=== PATIENT | male | born 1960 | race Caucasian/White ===

== ENCOUNTER 2021-04-07 15:56 | Observation (INO) ==
[2021-04-08] MEDS ORDERED: Ondansetron 4 MG/2 ML VIAL IVP PRN (03:14)
[2021-04-08] MEDS ORDERED: Naloxone 0.4 MG/ML INJ IVP PRN (03:14)
[2021-04-08] MEDS ORDERED: 0.9 % Sodium Chloride 1,000 ML IVC SCH (03:15)
[2021-04-08 04:19] LABS: Estimated Average Glucose 114 mg/dl; Hemoglobin A1C 5.6 %
[2021-04-08 04:32] LABS: Alanine Aminotransferase 15 Units/L (7-52); Albumin 3.9 g/dL (3.5-5.7); Albumin/Globulin Ratio 1.4 (1.1-2.2); Alkaline Phosphatase 66 Units/L (34-104); Aspartate Amino Transferase 23 Units/L (13-39); BUN/Creatinine Ratio 10 (6-26); Bilirubin,Total 0.7 mg/dL (0.3-1.0); Blood Urea Nitrogen 8 mg/dL (8-23); Calcium 9.2 mg/dL (8.6-10.3); Carbon Dioxide 28 mEq/L (23-29); Chloride 99 mEq/L (98-107); Chol/HDL Ratio 1.8 (0-4.9); Cholesterol 211 mg/dL (< 200); Globulin 2.8 g/dL (2.4-3.5); Glucose 122 mg/dL (70-105); HDL Cholesterol 118 mg/dL (40-59); LDL Cholesterol,Calculated 83 mg/dL (< 100); Magnesium 1.4 mg/dL (1.6-2.6); Osmolality,Calculated 284 (280-300); Potassium 3.9 mEq/L (3.5-5.1); Sodium 137 mEq/L (136-145); Total Protein 6.7 g/dL (6.4-8.9); Triglycerides 52 mg/dL (< 150); eGFR For African Americans > 60 (> 60); eGFR For Non-African Americans > 60 (> 60)
[2021-04-08 04:34] LABS: Albumin 3.9 g/dL (3.5-5.7); Albumin/Globulin Ratio 1.4 (1.1-2.2); Bilirubin,Direct 0.1 mg/dL (0.0-0.2); Bilirubin,Indirect 0.6 mg/dL (0.0-1.0); Bilirubin,Total 0.7 mg/dL (0.3-1.0); Globulin 2.7 g/dL (2.4-3.5); Total Protein 6.6 g/dL (6.4-8.9)
[2021-04-08 04:46] LABS: Thyroid Stimulating Hormone 0.418 mcIU/mL (0.340-5.600)
[2021-04-08] MEDS ORDERED: Famotidine 20 MG/2 ML VIAL IVP SCH (06:00)
[2021-04-08 06:14] LABS: Activated Partial Thrombo Time 34.5 Seconds (26.0-36.0); INR 1.1; Prothrombin Time 12.3 Seconds (9.4-12.1)
[2021-04-08 06:14] LABS: Amphetamine Screen,Urine Negative ng/mL (Cutoff=1000); Barbiturate Screen,Urine Negative ng/mL (Cutoff=200); Benzodiazepines Screen,Urine Positive ng/mL (Cutoff=300); Cannabinoid Screen,Urine Negative ng/mL (Cutoff = 50); Cocaine Screen,Urine Negative ng/mL (Cutoff= 300); Opiate Screen,Urine Negative ng/mL (Cutoff=300)
[2021-04-08 06:15] LABS: Phencyclidine Screen,Urine Negative ng/mL (Cutoff=25)
[2021-04-08] MEDS ORDERED: *HR* LORazepam 2 MG/ML VIAL IVP ONE (06:46)
[2021-04-08 06:52] VITALS: BP 150/82; PULSE 82; TEMP 98.4; O2SAT 97
[2021-04-08] MEDS ORDERED: Thiamine (B-1) 100 MG TABLET PO SCH (09:00)
[2021-04-08] MEDS ORDERED: Magnesium Oxide 400 MG TABLET PO SCH (09:00)
[2021-04-08] MEDS ORDERED: Folic Acid 1 MG TABLET PO SCH (09:00)
[2021-04-08 11:31] LABS: Hematocrit 38.1 % (37.5-50.1); Hemoglobin 12.5 g/dL (12.9-16.9); Mean Corpuscular HGB Conc 32.8 g/dL (31.6-35.5); Mean Corpuscular Hemoglobin 29.3 pg (28.0-33.3); Mean Corpuscular Volume 89.4 fL (83.0-100.0); Red Blood Count 4.26 M/mcL (4.19-5.50); White Blood Count 4.1 K/mcL (4.3-11.1)
[2021-04-08 11:32] LABS: Lymphocytes # 0.6 K/mcL (0.6-4.6); Lymphocytes % 15.1 %; Mean Platelet Volume 10.8 fL (9.4-12.4); Monocytes # 0.3 K/mcL (0.0-1.3); Monocytes % 7.8 %; Neutrophils # 3.2 K/mcL (1.6-8.9); Platelet Count 301 K/mcL (140-400); Red Cell Distribution Width 17.4 % (11.5-14.5); Segmented Neutrophils % 77.1 %
[2021-04-09 10:19] LABS: Bilirubin,Urine Negative (Negative); Blood,Urine Negative (Negative); Clarity,Urine Clear (Clear); Color,Urine Yellow (Yellow); Glucose,Urine (UA) 50 mg/dL (Normal); Ketones,Urine 60 mg/dL (Negative); Leukocyte Esterase,Urine Negative (Negative); Mucus,Urine Few per lpf (None-Few); Nitrite,Urine Negative (Negative); PH,Urine 6.5 pH Units (5.0-8.0); Protein,Urine 30 mg/dL (Neg-Trace); RBC,Urine 0-3 per hpf (0-3); Specific Gravity,Urine 1.022 (1.010-1.025); Squamous Epithelial Cell,Urine Few per hpf (None-Few); Urobilinogen,Urine Normal (Normal)
== END 2021-04-08 09:31 | disposition home or self-care (01) ==
LOC: 3BNU
PROVIDERS: ADMIT Internal Medicine; ATTEND Internal Medicine

== ENCOUNTER 2021-06-13 01:04 | Inpatient (IN) ==
[2021-06-13] MEDS ORDERED: Naloxone 0.4 MG/ML INJ IVP PRN (01:23)
[2021-06-13] MEDS ORDERED: *HR* LORazepam 2 MG/ML VIAL IVP PRN (01:27)
[2021-06-13] MEDS: *HR* LORazepam 2 MG/ML VIAL IVP PRN ×3 (02:00→16:31)
[2021-06-13] MEDS: Melatonin 3 MG TABLET PO PRN ×2 (02:01→23:39)
[2021-06-13] MEDS ORDERED: *HR* OxyCODONE Immed Rel 5 MG TABLET PO PRN (02:06)
[2021-06-13 02:13] LABS: Basophils % 0.2 %; Eosinophils % 0.2 %; Hematocrit 32.3 % (37.5-50.1); Hemoglobin 10.9 g/dL (12.9-16.9); Immature Granulocytes % 0.6 % (0-4); Lymphocytes # 1.3 K/mcL (0.6-4.6); Lymphocytes % 14.2 %; Mean Corpuscular HGB Conc 33.7 g/dL (31.6-35.5); Mean Corpuscular Hemoglobin 29.7 pg (28.0-33.3); Mean Platelet Volume 9.7 fL (9.4-12.4); Monocytes # 0.5 K/mcL (0.0-1.3); Neutrophils # 7.1 K/mcL (1.6-8.9); Platelet Count 244 K/mcL (140-400); Red Blood Count 3.67 M/mcL (4.19-5.50); Red Cell Distribution Width 18.3 % (11.5-14.5); Segmented Neutrophils % 79.8 %; White Blood Count 8.9 K/mcL (4.3-11.1)
[2021-06-13 02:24] LABS: Prothrombin Time 11.2 Seconds (9.4-12.1)
[2021-06-13 02:37] LABS: BUN/Creatinine Ratio 11 (6-26); Blood Urea Nitrogen 7 mg/dL (8-23); Calcium 8.2 mg/dL (8.6-10.3); Carbon Dioxide 26 mEq/L (23-29); Chloride 97 mEq/L (98-107); Glucose 119 mg/dL (70-105); Osmolality,Calculated 283 (280-300); Potassium 3.1 mEq/L (3.5-5.1); Sodium 137 mEq/L (136-145); eGFR For African Americans > 60 (> 60); eGFR For Non-African Americans > 60 (> 60)
[2021-06-13 02:48] LABS: Troponin I 0.04 ng/mL (< 0.04)
[2021-06-13] MEDS ORDERED: Ondansetron 4 MG/2 ML VIAL IVP PRN (03:01)
[2021-06-13] MEDS: Pantoprazole 40 MG VIAL IVP SCH ×2 (04:48→10:12)
[2021-06-13] MEDS ORDERED: Piperacillin/Tazobactam 3.375 GM in 0.9 % Sodium Chloride Mini Bag 100 ML IVPB SCH (06:00)
[2021-06-13] MEDS: Gabapentin 400 MG CAPSULE PO SCH ×3 (07:37→20:36)
[2021-06-13] MEDS: amLODIPine 5 MG TABLET PO SCH (07:38)
[2021-06-13] MEDS: Nicotine 21 MG PATCH.TD24 TD SCH (07:38)
[2021-06-13] MEDS: Renal Vitamin 1 CAP CAPSULE PO SCH (07:38)
[2021-06-13] MEDS: Amoxicillin/Clavulanate 500 MG TABLET PO SCH ×2 (07:59→15:54)
[2021-06-13] MEDS ORDERED: NON-FORMULARY MEDICATION 1 EACH EACH (Tadalafil [Cialis] 5 MG Tablet) PO SCH (09:00)
[2021-06-13] MEDS ORDERED: cloNIDine HCL 0.1 MG TABLET PO SCH (09:00)
[2021-06-13] MEDS ORDERED: 0.9 % Sodium Chloride 1,000 ML IVC ONE (10:03)
[2021-06-13] MEDS: *HR* Labetalol 20 MG/4 ML SYRINGE IVP PRN ×2 (11:00→21:34)
[2021-06-13] MEDS: *HR* Enoxaparin 40 MG/0.4 ML SYRINGE SQ SCH (11:05)
[2021-06-13] MEDS: Thiamine (B-1) 100 MG in 0.9 % Sodium Chloride 50 ML IVPB SCH (11:14)
[2021-06-13] MEDS: 0.9 % Sodium Chloride 1,000 ML IVC SCH ×2 (11:31→19:21)
[2021-06-13] MEDS: cloNIDine HCL 0.1 MG TABLET PO SCH (20:36)
[2021-06-13] MEDS: Naltrexone HCl 50 MG TABLET PO SCH (20:36)
[2021-06-13] MEDS: Acetaminophen 325 MG TABLET PO PRN (21:25)
[2021-06-14 00:47] LABS: Basophils % 0.2 %; Eosinophils # 0.2 K/mcL (0.0-0.6); Eosinophils % 3.5 %; Hematocrit 28.5 % (37.5-50.1); Immature Granulocytes % 0.3 % (0-4); Lymphocytes # 1.1 K/mcL (0.6-4.6); Lymphocytes % 16.8 %; Mean Corpuscular HGB Conc 32.3 g/dL (31.6-35.5); Mean Corpuscular Hemoglobin 29.5 pg (28.0-33.3); Mean Corpuscular Volume 91.3 fL (83.0-100.0); Mean Platelet Volume 10.8 fL (9.4-12.4); Monocytes # 0.2 K/mcL (0.0-1.3); Monocytes % 3.4 %; Platelet Count 180 K/mcL (140-400); Red Blood Count 3.12 M/mcL (4.19-5.50); Red Cell Distribution Width 18.7 % (11.5-14.5); Segmented Neutrophils % 75.8 %; White Blood Count 6.6 K/mcL (4.3-11.1)
[2021-06-14 00:48] LABS: Hemoglobin 9.2 g/dL (12.9-16.9)
[2021-06-14 01:03] LABS: BUN/Creatinine Ratio 14 (6-26); Blood Urea Nitrogen 9 mg/dL (8-23); Calcium 8.1 mg/dL (8.6-10.3); Carbon Dioxide 25 mEq/L (23-29); Chloride 104 mEq/L (98-107); Glucose 148 mg/dL (70-105); Magnesium 1.7 mg/dL (1.6-2.6); Osmolality,Calculated 285 (280-300); Phosphorous 2.8 mg/dL (2.7-4.5); Potassium 3.2 mEq/L (3.5-5.1); Sodium 137 mEq/L (136-145); eGFR For African Americans > 60 (> 60); eGFR For Non-African Americans > 60 (> 60)
[2021-06-14] MEDS: *HR* LORazepam 2 MG/ML VIAL IVP PRN ×3 (01:15→22:14)
[2021-06-14] MEDS: *HR* Enoxaparin 40 MG/0.4 ML SYRINGE SQ SCH (04:48)
[2021-06-14] MEDS ORDERED: 0.9 % Sodium Chloride 1,000 ML IVC SCH (07:45)
[2021-06-14] MEDS: Renal Vitamin 1 CAP CAPSULE PO SCH (07:56)
[2021-06-14] MEDS: Nicotine 21 MG PATCH.TD24 TD SCH (07:56)
[2021-06-14] MEDS: Gabapentin 400 MG CAPSULE PO SCH ×3 (07:56→20:18)
[2021-06-14] MEDS: amLODIPine 5 MG TABLET PO SCH (07:57)
[2021-06-14] MEDS: Amoxicillin/Clavulanate 500 MG TABLET PO SCH ×2 (07:57→15:48)
[2021-06-14] MEDS: cloNIDine HCL 0.1 MG TABLET PO SCH ×2 (07:57→20:16)
[2021-06-14] MEDS: Thiamine (B-1) 100 MG in 0.9 % Sodium Chloride 50 ML IVPB SCH (08:02)
[2021-06-14] MEDS: *HR* OxyCODONE/APAP 5/325 TABLET PO PRN ×2 (09:49→19:31)
[2021-06-14] MEDS: Acetaminophen 325 MG TABLET PO PRN (12:28)
[2021-06-14] MEDS: *HR* Labetalol 20 MG/4 ML SYRINGE IVP PRN (14:28)
[2021-06-14] MEDS: carvediloL 6.25 MG TABLET PO SCH ×2 (14:29→20:17)
[2021-06-14] MEDS: 0.9 % Sodium Chloride 1,000 ML IVC SCH ×2 (15:49→23:52)
[2021-06-14] MEDS: Melatonin 3 MG TABLET PO PRN (20:18)
[2021-06-14] MEDS: Naltrexone HCl 50 MG TABLET PO SCH (20:18)
[2021-06-15] MEDS: *HR* OxyCODONE/APAP 5/325 TABLET PO PRN ×3 (01:35→16:28)
[2021-06-15 01:38] LABS: Basophils % 0.2 %; Eosinophils # 0.2 K/mcL (0.0-0.6); Hematocrit 28.3 % (37.5-50.1); Hemoglobin 9.1 g/dL (12.9-16.9); Immature Granulocytes % 0.6 % (0-4); Lymphocytes % 19.1 %; Mean Corpuscular HGB Conc 32.2 g/dL (31.6-35.5); Mean Corpuscular Hemoglobin 29.6 pg (28.0-33.3); Mean Corpuscular Volume 92.2 fL (83.0-100.0); Mean Platelet Volume 10.9 fL (9.4-12.4); Monocytes # 0.2 K/mcL (0.0-1.3); Monocytes % 3.4 %; Neutrophils # 3.8 K/mcL (1.6-8.9); Platelet Count 178 K/mcL (140-400); Red Blood Count 3.07 M/mcL (4.19-5.50); Red Cell Distribution Width 18.4 % (11.5-14.5); Segmented Neutrophils % 72.7 %; White Blood Count 5.2 K/mcL (4.3-11.1)
[2021-06-15 02:04] LABS: BUN/Creatinine Ratio 10 (6-26); Blood Urea Nitrogen 6 mg/dL (8-23); Calcium 8.3 mg/dL (8.6-10.3); Carbon Dioxide 25 mEq/L (23-29); Chloride 102 mEq/L (98-107); Glucose 171 mg/dL (70-105); Magnesium 1.3 mg/dL (1.6-2.6); Osmolality,Calculated 284 (280-300); Phosphorous 3.2 mg/dL (2.7-4.5); Potassium 3.7 mEq/L (3.5-5.1); Sodium 136 mEq/L (136-145); eGFR For African Americans > 60 (> 60); eGFR For Non-African Americans > 60 (> 60)
[2021-06-15] MEDS: *HR* LORazepam 2 MG/ML VIAL IVP PRN ×5 (03:21→21:57)
[2021-06-15] MEDS: *HR* Enoxaparin 40 MG/0.4 ML SYRINGE SQ SCH (05:26)
[2021-06-15] MEDS: amLODIPine 5 MG TABLET PO SCH (08:32)
[2021-06-15] MEDS: cloNIDine HCL 0.1 MG TABLET PO SCH ×2 (08:33→21:53)
[2021-06-15] MEDS: carvediloL 6.25 MG TABLET PO SCH ×2 (08:33→21:49)
[2021-06-15] MEDS: Gabapentin 400 MG CAPSULE PO SCH ×3 (08:33→21:53)
[2021-06-15] MEDS: Renal Vitamin 1 CAP CAPSULE PO SCH (08:33)
[2021-06-15] MEDS: Thiamine (B-1) 100 MG TABLET PO SCH (08:33)
[2021-06-15] MEDS: Amoxicillin/Clavulanate 500 MG TABLET PO SCH ×2 (08:33→16:28)
[2021-06-15] MEDS: Nicotine 21 MG PATCH.TD24 TD SCH (08:34)
[2021-06-15 17:50] LABS: Adenovirus Not Detected (Not Detect); Bordetella Pertussis Not Detected (Not Detect); Chlamydophila pneumoniae Not Detected (Not Detect); Coronavirus 229E Not Detected (Not Detect); Coronavirus HKU1 Not Detected (Not Detect); Coronavirus NL63 Not Detected (Not Detect); Coronavirus OC43 Not Detected (Not Detect); Human Metapneumovirus Not Detected (Not Detect); Human Rhinovirus/Enterovirus Not Detected (Not Detect); Influenza A Subtype 2009 H1 Not Detected (Not Detect); Influenza B Not Detected (Not Detect); Mycoplasma pneumoniae Not Detected (Not Detect); Parainfluenza Virus 1 Not Detected (Not Detect); Parainfluenza Virus 2 Not Detected (Not Detect); Parainfluenza Virus 3 Not Detected (Not Detect); Parainfluenza Virus 4 Not Detected (Not Detect); Respiratory Syncytial Virus Not Detected (Not Detect); SARS-CoV-2 Not Detected (Not Detect)
[2021-06-15] MEDS: Melatonin 3 MG TABLET PO PRN (21:50)
[2021-06-15] MEDS: Naltrexone HCl 50 MG TABLET PO SCH (21:50)
[2021-06-16] MEDS: *HR* OxyCODONE/APAP 5/325 TABLET PO PRN ×3 (00:04→17:40)
[2021-06-16 05:19] LABS: Basophils % 0.2 %; Eosinophils # 0.2 K/mcL (0.0-0.6); Eosinophils % 3.1 %; Hemoglobin 10.4 g/dL (12.9-16.9); Immature Granulocytes % 0.5 % (0-4); Lymphocytes # 1.6 K/mcL (0.6-4.6); Lymphocytes % 27.7 %; Mean Corpuscular HGB Conc 33.5 g/dL (31.6-35.5); Mean Corpuscular Hemoglobin 30.7 pg (28.0-33.3); Mean Corpuscular Volume 91.4 fL (83.0-100.0); Mean Platelet Volume 10.6 fL (9.4-12.4); Monocytes # 0.5 K/mcL (0.0-1.3); Monocytes % 8.3 %; Neutrophils # 3.6 K/mcL (1.6-8.9); Platelet Count 220 K/mcL (140-400); Red Blood Count 3.39 M/mcL (4.19-5.50); Red Cell Distribution Width 18.5 % (11.5-14.5); Segmented Neutrophils % 60.2 %; White Blood Count 5.9 K/mcL (4.3-11.1)
[2021-06-16 05:37] LABS: BUN/Creatinine Ratio 12 (6-26); Blood Urea Nitrogen 8 mg/dL (8-23); Calcium 9.3 mg/dL (8.6-10.3); Carbon Dioxide 28 mEq/L (23-29); Chloride 100 mEq/L (98-107); Glucose 96 mg/dL (70-105); Magnesium 1.7 mg/dL (1.6-2.6); Osmolality,Calculated 280 (280-300); Phosphorous 4.6 mg/dL (2.7-4.5); Potassium 4.2 mEq/L (3.5-5.1); Sodium 136 mEq/L (136-145); eGFR For African Americans > 60 (> 60); eGFR For Non-African Americans > 60 (> 60)
[2021-06-16] MEDS: *HR* Enoxaparin 40 MG/0.4 ML SYRINGE SQ SCH (07:17)
[2021-06-16] MEDS: Amoxicillin/Clavulanate 500 MG TABLET PO SCH ×2 (08:54→17:40)
[2021-06-16] MEDS: *HR* LORazepam 2 MG/ML VIAL IVP PRN ×4 (08:54→21:49)
[2021-06-16] MEDS: cloNIDine HCL 0.1 MG TABLET PO SCH ×2 (08:54→21:51)
[2021-06-16] MEDS: carvediloL 6.25 MG TABLET PO SCH ×2 (08:54→21:50)
[2021-06-16] MEDS: amLODIPine 5 MG TABLET PO SCH (08:54)
[2021-06-16] MEDS: Gabapentin 400 MG CAPSULE PO SCH ×3 (08:55→21:51)
[2021-06-16] MEDS: Thiamine (B-1) 100 MG TABLET PO SCH (08:55)
[2021-06-16] MEDS: Nicotine 21 MG PATCH.TD24 TD SCH (08:55)
[2021-06-16] MEDS: Renal Vitamin 1 CAP CAPSULE PO SCH (08:55)
[2021-06-16] MEDS: Naltrexone HCl 50 MG TABLET PO SCH (21:50)
[2021-06-17] MEDS: *HR* OxyCODONE/APAP 5/325 TABLET PO PRN ×4 (00:39→19:16)
[2021-06-17] MEDS: Melatonin 3 MG TABLET PO PRN ×2 (00:40→21:10)
[2021-06-17] MEDS: *HR* LORazepam 2 MG/ML VIAL IVP PRN ×6 (02:15→23:17)
[2021-06-17 05:08] LABS: Basophils % 0.2 %; Eosinophils # 0.2 K/mcL (0.0-0.6); Eosinophils % 3.7 %; Immature Granulocytes % 0.5 % (0-4); Lymphocytes # 1.6 K/mcL (0.6-4.6); Lymphocytes % 27.1 %; Mean Corpuscular HGB Conc 33.3 g/dL (31.6-35.5); Mean Corpuscular Hemoglobin 30.9 pg (28.0-33.3); Mean Corpuscular Volume 92.6 fL (83.0-100.0); Monocytes # 0.7 K/mcL (0.0-1.3); Monocytes % 11.3 %; Neutrophils # 3.4 K/mcL (1.6-8.9); Platelet Count 242 K/mcL (140-400); Red Blood Count 3.24 M/mcL (4.19-5.50); Red Cell Distribution Width 18.9 % (11.5-14.5); Segmented Neutrophils % 57.2 %
[2021-06-17 05:33] LABS: BUN/Creatinine Ratio 13 (6-26); Blood Urea Nitrogen 10 mg/dL (8-23); Calcium 8.9 mg/dL (8.6-10.3); Carbon Dioxide 28 mEq/L (23-29); Chloride 102 mEq/L (98-107); Glucose 130 mg/dL (70-105); Magnesium 1.5 mg/dL (1.6-2.6); Osmolality,Calculated 287 (280-300); Phosphorous 4.9 mg/dL (2.7-4.5); Potassium 3.2 mEq/L (3.5-5.1); Sodium 138 mEq/L (136-145); eGFR For African Americans > 60 (> 60); eGFR For Non-African Americans > 60 (> 60)
[2021-06-17] MEDS: *HR* Enoxaparin 40 MG/0.4 ML SYRINGE SQ SCH (06:47)
[2021-06-17] MEDS: amLODIPine 5 MG TABLET PO SCH (07:23)
[2021-06-17] MEDS: Amoxicillin/Clavulanate 500 MG TABLET PO SCH ×2 (07:23→15:10)
[2021-06-17] MEDS: Gabapentin 400 MG CAPSULE PO SCH ×3 (07:23→21:09)
[2021-06-17] MEDS: Thiamine (B-1) 100 MG TABLET PO SCH (07:23)
[2021-06-17] MEDS: Renal Vitamin 1 CAP CAPSULE PO SCH (07:23)
[2021-06-17] MEDS: carvediloL 6.25 MG TABLET PO SCH ×2 (07:23→21:10)
[2021-06-17] MEDS: cloNIDine HCL 0.1 MG TABLET PO SCH ×2 (07:24→21:10)
[2021-06-17] MEDS: Nicotine 21 MG PATCH.TD24 TD SCH (07:24)
[2021-06-18] MEDS: *HR* OxyCODONE/APAP 5/325 TABLET PO PRN ×2 (01:18→09:10)
[2021-06-18 03:08] LABS: Basophils % 0.2 %; Eosinophils # 0.2 K/mcL (0.0-0.6); Eosinophils % 2.4 %; Hematocrit 29.3 % (37.5-50.1); Hemoglobin 9.5 g/dL (12.9-16.9); Immature Granulocytes % 0.8 % (0-4); Lymphocytes # 1.5 K/mcL (0.6-4.6); Lymphocytes % 24.4 %; Mean Corpuscular HGB Conc 32.4 g/dL (31.6-35.5); Mean Corpuscular Hemoglobin 30.5 pg (28.0-33.3); Mean Corpuscular Volume 94.2 fL (83.0-100.0); Mean Platelet Volume 9.8 fL (9.4-12.4); Monocytes % 15.3 %; Neutrophils # 3.6 K/mcL (1.6-8.9); Platelet Count 259 K/mcL (140-400); Red Blood Count 3.11 M/mcL (4.19-5.50); Red Cell Distribution Width 19.4 % (11.5-14.5); Segmented Neutrophils % 56.9 %; White Blood Count 6.3 K/mcL (4.3-11.1)
[2021-06-18 03:27] LABS: BUN/Creatinine Ratio 19 (6-26); Blood Urea Nitrogen 14 mg/dL (8-23); Calcium 8.8 mg/dL (8.6-10.3); Carbon Dioxide 24 mEq/L (23-29); Chloride 105 mEq/L (98-107); Glucose 82 mg/dL (70-105); Magnesium 1.8 mg/dL (1.6-2.6); Osmolality,Calculated 286 (280-300); Phosphorous 3.8 mg/dL (2.7-4.5); Potassium 4.2 mEq/L (3.5-5.1); Sodium 138 mEq/L (136-145); eGFR For African Americans > 60 (> 60); eGFR For Non-African Americans > 60 (> 60)
[2021-06-18] MEDS: *HR* Enoxaparin 40 MG/0.4 ML SYRINGE SQ SCH (05:42)
[2021-06-18] MEDS: Thiamine (B-1) 100 MG TABLET PO SCH (08:56)
[2021-06-18] MEDS: carvediloL 6.25 MG TABLET PO SCH (08:56)
[2021-06-18] MEDS: Amoxicillin/Clavulanate 500 MG TABLET PO SCH (08:56)
[2021-06-18] MEDS: Nicotine 21 MG PATCH.TD24 TD SCH (08:58)
[2021-06-18] MEDS: Gabapentin 400 MG CAPSULE PO SCH (08:58)
[2021-06-18] MEDS: cloNIDine HCL 0.1 MG TABLET PO SCH (08:58)
[2021-06-18] MEDS: Renal Vitamin 1 CAP CAPSULE PO SCH (08:58)
[2021-06-18] MEDS: amLODIPine 5 MG TABLET PO SCH (08:58)
[2021-06-18] MEDS: *HR* LORazepam 2 MG/ML VIAL IVP PRN (09:09)
[2021-06-18 11:26] LABS: Adenovirus Not Detected (Not Detect); Bordetella Pertussis Not Detected (Not Detect); Chlamydophila pneumoniae Not Detected (Not Detect); Coronavirus 229E Not Detected (Not Detect); Coronavirus HKU1 Not Detected (Not Detect); Coronavirus NL63 Not Detected (Not Detect); Coronavirus OC43 Not Detected (Not Detect); Human Metapneumovirus Not Detected (Not Detect); Human Rhinovirus/Enterovirus Not Detected (Not Detect); Influenza A Subtype 2009 H1 Not Detected (Not Detect); Influenza B Not Detected (Not Detect); Mycoplasma pneumoniae Not Detected (Not Detect); Parainfluenza Virus 1 Not Detected (Not Detect); Parainfluenza Virus 2 Not Detected (Not Detect); Parainfluenza Virus 3 Not Detected (Not Detect); Parainfluenza Virus 4 Not Detected (Not Detect); Respiratory Syncytial Virus Not Detected (Not Detect)
[2021-06-18 11:31] LABS: SARS-CoV-2 DETECTED (Not Detect)
[2021-06-18 12:02] VITALS: BP 178/98; PULSE 103; TEMP 98.3; O2SAT 98
[2021-06-18] MEDS: Acetaminophen 325 MG TABLET PO PRN (13:36)
== END 2021-06-18 15:34 | disposition home or self-care (01) | DRG 871 ==
LOC: 2NENU → OBSVTOIN 01:04
PROVIDERS: ADMIT Internal Medicine; ATTEND Internal Medicine

== ENCOUNTER 2021-08-15 20:36 | Inpatient (IN) ==
[2021-08-16] MEDS ORDERED: Ondansetron ODT 4 MG TAB.RAPDIS SL PRN (04:21)
[2021-08-16] MEDS ORDERED: Acetaminophen 325 MG TABLET PO PRN (04:21)
[2021-08-16] MEDS ORDERED: Naloxone 0.4 MG/ML INJ IVP PRN (04:21)
[2021-08-16] MEDS ORDERED: *HR* LORazepam 2 MG/ML VIAL IVP PRN ×2 (04:34→04:38)
[2021-08-16] MEDS ORDERED: Thiamine (B-1) 500 MG in 0.9 % Sodium Chloride 100 ML IVPB ONE (05:00)
[2021-08-16] MEDS: *HR* LORazepam 2 MG/ML VIAL IVP PRN ×3 (06:17→14:02)
[2021-08-16 06:26] LABS: Folate 12.7 ng/mL (3.0-16.0)
[2021-08-16] MEDS: Ringers Solution, Lactated 1,000 ML IVC SCH ×4 (06:40→20:25)
[2021-08-16 09:26] LABS: Basophils % 0.3 %; Eosinophils % 0.4 %; Hematocrit 30.7 % (37.5-50.1); Hemoglobin 10.2 g/dL (12.9-16.9); Immature Granulocytes % 0.8 % (0-4); Lymphocytes # 0.8 K/mcL (0.6-4.6); Lymphocytes % 10.8 %; Mean Corpuscular HGB Conc 33.2 g/dL (31.6-35.5); Mean Corpuscular Hemoglobin 28.7 pg (28.0-33.3); Mean Corpuscular Volume 86.2 fL (83.0-100.0); Mean Platelet Volume 9.8 fL (9.4-12.4); Monocytes # 0.6 K/mcL (0.0-1.3); Monocytes % 7.4 %; Neutrophils # 6.3 K/mcL (1.6-8.9); Platelet Count 163 K/mcL (140-400); Red Blood Count 3.56 M/mcL (4.19-5.50); Red Cell Distribution Width 16.8 % (11.5-14.5); Segmented Neutrophils % 80.3 %; White Blood Count 7.8 K/mcL (4.3-11.1)
[2021-08-16 09:46] LABS: Alanine Aminotransferase 26 Units/L (7-52); Albumin 3.2 g/dL (3.5-5.7); Albumin/Globulin Ratio 1.5 (1.1-2.2); Alkaline Phosphatase 69 Units/L (34-104); Aspartate Amino Transferase 62 Units/L (13-39); BUN/Creatinine Ratio 9 (6-26); Bilirubin,Total 0.7 mg/dL (0.3-1.0); Blood Urea Nitrogen 6 mg/dL (8-23); Calcium 7.7 mg/dL (8.6-10.3); Carbon Dioxide 26 mEq/L (23-29); Chloride 100 mEq/L (98-107); Globulin 2.1 g/dL (2.4-3.5); Glucose 83 mg/dL (70-105); Osmolality,Calculated 273 (280-300); Potassium 2.9 mEq/L (3.5-5.1); Sodium 133 mEq/L (136-145); Total Protein 5.3 g/dL (6.4-8.9); eGFR For African Americans > 60 (> 60); eGFR For Non-African Americans > 60 (> 60)
[2021-08-16] MEDS: Ondansetron 4 MG/2 ML VIAL IVP PRN ×2 (10:05→20:23)
[2021-08-16] MEDS: Dexmedetomidine HCl 400 MCG/100 ML MLS IVC SCH (15:17)
[2021-08-16] MEDS ORDERED: traZODone 50 MG TABLET PO PRN (16:51)
[2021-08-16] MEDS ORDERED: QUEtiapine Fumarate 25 MG TABLET PO PRN (16:55)
[2021-08-16] MEDS ORDERED: amLODIPine 5 MG TABLET PO SCH (17:00)
[2021-08-16] MEDS ORDERED: carvediloL 6.25 MG TABLET PO SCH (17:00)
[2021-08-16] MEDS ORDERED: *HR* LORazepam 2 MG/ML VIAL IVP ONE (17:27)
[2021-08-16] MEDS ORDERED: *HR* Midazolam HCl 5 MG/5 ML VIAL IVP ONE (17:27)
[2021-08-16] MEDS ORDERED: *HR* Etomidate 20 MG/10 ML AMPUL IVP ONE (17:27)
[2021-08-16] MEDS ORDERED: *HR* Propofol 200 MG/20 ML VIAL IVP ONE ×2 (17:27→21:42)
[2021-08-16] MEDS ORDERED: *HR* Midazolam HCl 2 MG/2 ML VIAL IVP ONE (17:27)
[2021-08-16] MEDS: *HR* Heparin 5,000 UNIT/ML VIAL SQ SCH (17:45)
[2021-08-16] MEDS ORDERED: Thiamine (B-1) 100 MG, Folic Acid 1 MG, MVI, adult with vitamin K 10 ML in 0.9 % Sodi... IVPB SCH (18:00)
[2021-08-16] MEDS: Melatonin 3 MG TABLET PO PRN (20:24)
[2021-08-16] MEDS: Gabapentin 300 MG CAPSULE PO SCH (20:24)
[2021-08-16] MEDS ORDERED: cloNIDine HCL 0.1 MG TABLET PO SCH (21:00)
[2021-08-16] MEDS ORDERED: *HR* EPINEPHrine 1 MG/10 ML SYRINGE IVP ONE (21:43)
[2021-08-16] MEDS ORDERED: *HR* Midazolam HCl 2 MG/2 ML VIAL ONE (21:56)
[2021-08-16 21:59] LABS: ABG Base Excess 2 mEq/L (-2 to 3); ABG HCO3 28 mEq/L (21-27); ABG Oxygen Saturation 100 % (95-98); ABG PCO2 48 mmHg (35-45); ABG PH 7.37 pH Units (7.32-7.45); ABG PO2 181 mmHg (85-104); ABG TCO2 29 mEq/L (20-26)
[2021-08-16] MEDS: Midazolam HCl 50 MG/100 ML IV.SOLN IVC SCH (22:17)
[2021-08-16] MEDS ORDERED: Artificial Tears SOLN 15 ML BOTTLE BOTH EYES PRN (22:34)
[2021-08-16 22:42] LABS: Prothrombin Time 11.4 Seconds (9.4-12.1)
[2021-08-16 23:17] LABS: Alanine Aminotransferase 44 Units/L (7-52); Albumin 3.4 g/dL (3.5-5.7); Albumin/Globulin Ratio 1.3 (1.1-2.2); Alkaline Phosphatase 79 Units/L (34-104); Aspartate Amino Transferase 123 Units/L (13-39); BUN/Creatinine Ratio 5 (6-26); Bilirubin,Total 1.1 mg/dL (0.3-1.0); Blood Urea Nitrogen 4 mg/dL (8-23); Calcium 9.1 mg/dL (8.6-10.3); Carbon Dioxide 24 mEq/L (23-29); Chloride 96 mEq/L (98-107); Creatine Kinase 940 Units/L (30-223); Globulin 2.6 g/dL (2.4-3.5); Glucose 148 mg/dL (70-105); Magnesium 1.6 mg/dL (1.6-2.6); Osmolality,Calculated 280 (280-300); Phosphorous 4.3 mg/dL (2.7-4.5); Potassium 3.3 mEq/L (3.5-5.1); Prolactin 67.48 ng/mL (3.00-14.70); Sodium 135 mEq/L (136-145); Troponin I 0.06 ng/mL (< 0.04); eGFR For African Americans > 60 (> 60); eGFR For Non-African Americans > 60 (> 60)
[2021-08-17] MEDS: Ringers Solution, Lactated 1,000 ML IVC SCH ×2 (01:13→06:38)
[2021-08-17] MEDS: Artificial Tears SOLN 15 ML BOTTLE BOTH EYES SCH ×7 (01:18→23:30)
[2021-08-17 02:33] LABS: Basophils % 0.3 %; Eosinophils % 0.3 %; Hematocrit 29.3 % (37.5-50.1); Hemoglobin 9.9 g/dL (12.9-16.9); Immature Granulocytes % 0.6 % (0-4); Lymphocytes # 1.2 K/mcL (0.6-4.6); Lymphocytes % 18.1 %; Mean Corpuscular HGB Conc 33.8 g/dL (31.6-35.5); Mean Corpuscular Hemoglobin 29.3 pg (28.0-33.3); Mean Corpuscular Volume 86.7 fL (83.0-100.0); Mean Platelet Volume 10.4 fL (9.4-12.4); Monocytes # 0.4 K/mcL (0.0-1.3); Monocytes % 5.7 %; Platelet Count 146 K/mcL (140-400); Red Blood Count 3.38 M/mcL (4.19-5.50); Red Cell Distribution Width 16.9 % (11.5-14.5); White Blood Count 6.6 K/mcL (4.3-11.1)
[2021-08-17] MEDS: Midazolam HCl 50 MG/100 ML IV.SOLN IVC SCH ×2 (03:50→11:35)
[2021-08-17 03:59] LABS: Basophils % 0.2 %; Eosinophils # 0.1 K/mcL (0.0-0.6); Eosinophils % 0.8 %; Hematocrit 29.4 % (37.5-50.1); Hemoglobin 9.8 g/dL (12.9-16.9); Immature Granulocytes % 0.6 % (0-4); Lymphocytes # 1.2 K/mcL (0.6-4.6); Lymphocytes % 18.8 %; Mean Corpuscular HGB Conc 33.3 g/dL (31.6-35.5); Mean Corpuscular Hemoglobin 28.8 pg (28.0-33.3); Mean Corpuscular Volume 86.5 fL (83.0-100.0); Monocytes # 0.3 K/mcL (0.0-1.3); Neutrophils # 4.8 K/mcL (1.6-8.9); Platelet Count 143 K/mcL (140-400); Red Cell Distribution Width 16.8 % (11.5-14.5); Segmented Neutrophils % 74.6 %; White Blood Count 6.4 K/mcL (4.3-11.1)
[2021-08-17 04:20] LABS: Alanine Aminotransferase 41 Units/L (7-52); Albumin 2.8 g/dL (3.5-5.7); Albumin/Globulin Ratio 1.3 (1.1-2.2); Alkaline Phosphatase 69 Units/L (34-104); Aspartate Amino Transferase 110 Units/L (13-39); BUN/Creatinine Ratio 5 (6-26); Bilirubin,Total 0.7 mg/dL (0.3-1.0); Blood Urea Nitrogen 3 mg/dL (8-23); Calcium 8.5 mg/dL (8.6-10.3); Carbon Dioxide 30 mEq/L (23-29); Chloride 102 mEq/L (98-107); Globulin 2.1 g/dL (2.4-3.5); Glucose 101 mg/dL (70-105); Magnesium 2.3 mg/dL (1.6-2.6); Osmolality,Calculated 283 (280-300); Potassium 3.2 mEq/L (3.5-5.1); Sodium 138 mEq/L (136-145); Total Protein 4.9 g/dL (6.4-8.9); eGFR For African Americans > 60 (> 60); eGFR For Non-African Americans > 60 (> 60)
[2021-08-17 04:31] LABS: ABG Base Excess 6 mEq/L (-2 to 3); ABG HCO3 30 mEq/L (21-27); ABG Oxygen Saturation 100 % (95-98); ABG PCO2 44 mmHg (35-45); ABG PH 7.45 pH Units (7.32-7.45); ABG PO2 421 mmHg (85-104); ABG TCO2 32 mEq/L (20-26); Blood Gas Modality ASSIST CONTROL; Blood Gas VT 500 cc
[2021-08-17] MEDS ORDERED: Dextrose Gel 15 GM/37.5 ML TUBE PO PRN ×2 (04:46)
[2021-08-17] MEDS ORDERED: D5% in Water 1,000 ML IVC PRN (04:46)
[2021-08-17] MEDS ORDERED: *HR* Dextrose 50 % in Water (Syg) 50 ML SYRINGE IVP PRN (04:46)
[2021-08-17] MEDS ORDERED: Furosemide 20 MG/2 ML VIAL IVP ONE (05:00)
[2021-08-17] MEDS ORDERED: Vancomycin 1,250 MG/262.5 ML IV.SOLN IVPB SCH (06:00)
[2021-08-17] MEDS: carvediloL 6.25 MG TABLET PO SCH ×2 (06:26→15:38)
[2021-08-17] MEDS: amLODIPine 5 MG TABLET PO SCH (06:40)
[2021-08-17] MEDS: *HR* Heparin 5,000 UNIT/ML VIAL SQ SCH ×2 (06:40→18:25)
[2021-08-17 07:14] LABS: Adenovirus Not Detected (Not Detect); Bordetella Pertussis Not Detected (Not Detect); Chlamydophila pneumoniae Not Detected (Not Detect); Coronavirus 229E Not Detected (Not Detect); Coronavirus HKU1 Not Detected (Not Detect); Coronavirus NL63 Not Detected (Not Detect); Coronavirus OC43 Not Detected (Not Detect); Human Metapneumovirus Not Detected (Not Detect); Human Rhinovirus/Enterovirus Not Detected (Not Detect); Influenza A Subtype 2009 H1 Not Detected (Not Detect); Influenza B Not Detected (Not Detect); Mycoplasma pneumoniae Not Detected (Not Detect); Parainfluenza Virus 1 Not Detected (Not Detect); Parainfluenza Virus 2 Not Detected (Not Detect); Parainfluenza Virus 3 Not Detected (Not Detect); Parainfluenza Virus 4 Not Detected (Not Detect); Respiratory Syncytial Virus Not Detected (Not Detect); SARS-CoV-2 Not Detected (Not Detect)
[2021-08-17] MEDS: Ipratropium/Albuterol Neb 3 ML IH SCH ×3 (08:08→20:59)
[2021-08-17] MEDS ORDERED: Ipratropium/Albuterol Neb 3 ML ONE (08:15)
[2021-08-17] MEDS: Piperacillin/Tazobactam 3.375 GM in 0.9 % Sodium Chloride Mini Bag 100 ML IVPB SCH ×3 (08:50→23:34)
[2021-08-17] MEDS ORDERED: NON-FORMULARY MEDICATION 1 EACH EACH (Duloxetine Hcl [Cymbalta] 60 MG Capsule.Dr) PO SCH (09:00)
[2021-08-17] MEDS: Chlorhexidine Rinse 15 ML MOUTHWASH MM SCH ×2 (09:17→19:57)
[2021-08-17] MEDS: Pantoprazole 40 MG VIAL IVP SCH (09:18)
[2021-08-17] MEDS: Aspirin Enteric Coated 81 MG Tablet PO SCH (09:18)
[2021-08-17] MEDS: Gabapentin 300 MG CAPSULE PO SCH ×3 (09:19→19:57)
[2021-08-17] MEDS ORDERED: Perflutren Lipid Microsphere 1.3 ML in 0.9 % Sodium Chloride 8.7 ML IVP PRN (11:12)
[2021-08-17 11:29] LABS: BUN/Creatinine Ratio 6 (6-26); Blood Urea Nitrogen 4 mg/dL (8-23); Calcium 8.2 mg/dL (8.6-10.3); Carbon Dioxide 28 mEq/L (23-29); Chloride 101 mEq/L (98-107); Ethanol < 10 mg/dL (Less than 10); Glucose 94 mg/dL (70-105); Osmolality,Calculated 279 (280-300); Potassium 3.2 mEq/L (3.5-5.1); Sodium 136 mEq/L (136-145); eGFR For African Americans > 60 (> 60); eGFR For Non-African Americans > 60 (> 60)
[2021-08-17] MEDS: Baclofen 10 MG TABLET PO SCH ×2 (15:33→19:57)
[2021-08-17] MEDS ORDERED: Acetaminophen IV 500 MG/50 ML BAG IVPB ONE (15:51)
[2021-08-17] MEDS: Potassium Chloride 40 MEQ/200 ML BAG IVPB PRN (16:10)
[2021-08-17 16:32] LABS: BUN/Creatinine Ratio 8 (6-26); Blood Urea Nitrogen 6 mg/dL (8-23); Calcium 8.3 mg/dL (8.6-10.3); Carbon Dioxide 28 mEq/L (23-29); Chloride 102 mEq/L (98-107); Glucose 97 mg/dL (70-105); Magnesium 1.7 mg/dL (1.6-2.6); Osmolality,Calculated 276 (280-300); Potassium 3.3 mEq/L (3.5-5.1); Sodium 134 mEq/L (136-145); eGFR For African Americans > 60 (> 60); eGFR For Non-African Americans > 60 (> 60)
[2021-08-17 19:43] LABS: Basophils % 0.3 %; Eosinophils % 0.2 %; Hematocrit 31.2 % (37.5-50.1); Hemoglobin 9.8 g/dL (12.9-16.9); Immature Granulocytes % 1.4 % (0-4); Lymphocytes # 0.8 K/mcL (0.6-4.6); Lymphocytes % 13.1 %; Mean Corpuscular HGB Conc 31.4 g/dL (31.6-35.5); Mean Corpuscular Hemoglobin 28.1 pg (28.0-33.3); Mean Corpuscular Volume 89.4 fL (83.0-100.0); Mean Platelet Volume 10.7 fL (9.4-12.4); Monocytes # 0.5 K/mcL (0.0-1.3); Monocytes % 7.8 %; Platelet Count 131 K/mcL (140-400); Red Blood Count 3.49 M/mcL (4.19-5.50); Red Cell Distribution Width 17.6 % (11.5-14.5); Segmented Neutrophils % 77.2 %; White Blood Count 6.4 K/mcL (4.3-11.1)
[2021-08-17] MEDS: Dexmedetomidine HCl 400 MCG/100 ML MLS IVC SCH (19:51)
[2021-08-17] MEDS: Vancomycin 1,250 MG/262.5 ML IV.SOLN IVPB SCH (19:52)
[2021-08-17] MEDS: Folic Acid 1 MG in 0.9 % Sodium Chloride 50 ML IVPB SCH (19:58)
[2021-08-17] MEDS: Thiamine (B-1) 100 MG in 0.9 % Sodium Chloride 50 ML IVPB SCH (20:02)
[2021-08-17] MEDS: FentaNYL (PF) 1,000 MCG/100 ML IV.SOLN IVC SCH ×2 (20:12→22:14)
[2021-08-18 00:32] LABS: Magnesium 1.9 mg/dL (1.6-2.6); Potassium 3.6 mEq/L (3.5-5.1)
[2021-08-18] MEDS: Potassium Chloride 40 MEQ/200 ML BAG IVPB PRN (01:08)
[2021-08-18] MEDS: Midazolam HCl 50 MG/100 ML IV.SOLN IVC SCH ×2 (03:05→21:48)
[2021-08-18] MEDS: Artificial Tears SOLN 15 ML BOTTLE BOTH EYES SCH ×6 (03:21→23:43)
[2021-08-18 04:03] LABS: Eosinophils # 0.1 K/mcL (0.0-0.6); Eosinophils % 0.8 %; Hematocrit 31.2 % (37.5-50.1); Immature Granulocytes % 0.6 % (0-4); Lymphocytes # 1.1 K/mcL (0.6-4.6); Lymphocytes % 15.3 %; Mean Corpuscular HGB Conc 32.1 g/dL (31.6-35.5); Mean Corpuscular Volume 90.4 fL (83.0-100.0); Mean Platelet Volume 10.8 fL (9.4-12.4); Monocytes # 0.6 K/mcL (0.0-1.3); Monocytes % 7.8 %; Neutrophils # 5.4 K/mcL (1.6-8.9); Platelet Count 126 K/mcL (140-400); Red Blood Count 3.45 M/mcL (4.19-5.50); Red Cell Distribution Width 17.8 % (11.5-14.5); Segmented Neutrophils % 75.5 %; White Blood Count 7.2 K/mcL (4.3-11.1)
[2021-08-18 04:06] LABS: VBG Ionized Calcium 1.12 mmol/L (1.15-1.35)
[2021-08-18] MEDS: Ipratropium/Albuterol Neb 3 ML IH SCH ×4 (04:06→22:56)
[2021-08-18 04:21] LABS: Phosphorous 3.4 mg/dL (2.7-4.5)
[2021-08-18 04:32] LABS: Platelet Estimate Slight Decrease (Normal); Toxic Granulation Present (Not Present)
[2021-08-18 04:38] LABS: Bilirubin,Urine Small (Negative); Blood,Urine Moderate (Negative); Clarity,Urine Clear (Clear); Color,Urine Yellow (Yellow); Glucose,Urine (UA) Normal (Normal); Ketones,Urine 100 mg/dL (Negative); Leukocyte Esterase,Urine Negative (Negative); Mucus,Urine Few per lpf (None-Few); Nitrite,Urine Negative (Negative); Protein,Urine 100 mg/dL (Neg-Trace); RBC,Urine TNTC per hpf (0-3); Specific Gravity,Urine > 1.030 (1.010-1.025)
[2021-08-18 04:53] LABS: ABG Base Excess 1 mEq/L (-2 to 3); ABG HCO3 25 mEq/L (21-27); ABG Oxygen Saturation 95 % (95-98); ABG PCO2 37 mmHg (35-45); ABG PH 7.43 pH Units (7.32-7.45); ABG PO2 74 mmHg (85-104); ABG TCO2 26 mEq/L (20-26); Blood Gas Modality ASSIST CONTROL; Blood Gas VT 500 cc
[2021-08-18 05:27] LABS: Alanine Aminotransferase 31 Units/L (7-52); Albumin 2.7 g/dL (3.5-5.7); Albumin/Globulin Ratio 1.1 (1.1-2.2); Alkaline Phosphatase 56 Units/L (34-104); Aspartate Amino Transferase 50 Units/L (13-39); BUN/Creatinine Ratio 13 (6-26); Bilirubin,Total 0.6 mg/dL (0.3-1.0); Blood Urea Nitrogen 9 mg/dL (8-23); Calcium 7.9 mg/dL (8.6-10.3); Carbon Dioxide 24 mEq/L (23-29); Chloride 100 mEq/L (98-107); Globulin 2.4 g/dL (2.4-3.5); Glucose 86 mg/dL (70-105); Osmolality,Calculated 288 (280-300); Potassium 3.6 mEq/L (3.5-5.1); Sodium 140 mEq/L (136-145); Total Protein 5.1 g/dL (6.4-8.9); eGFR For African Americans > 60 (> 60); eGFR For Non-African Americans > 60 (> 60)
[2021-08-18] MEDS: Vancomycin 1,250 MG/262.5 ML IV.SOLN IVPB SCH (06:55)
[2021-08-18] MEDS: *HR* Heparin 5,000 UNIT/ML VIAL SQ SCH ×2 (06:57→18:23)
[2021-08-18 08:22] LABS: Magnesium 2.1 mg/dL (1.6-2.6); Potassium 3.1 mEq/L (3.5-5.1)
[2021-08-18] MEDS: Gabapentin 300 MG CAPSULE PO SCH ×3 (08:30→19:55)
[2021-08-18] MEDS: amLODIPine 5 MG TABLET PO SCH (08:30)
[2021-08-18] MEDS: Piperacillin/Tazobactam 3.375 GM in 0.9 % Sodium Chloride Mini Bag 100 ML IVPB SCH ×2 (08:31→16:19)
[2021-08-18] MEDS: carvediloL 6.25 MG TABLET PO SCH ×2 (08:31→18:23)
[2021-08-18] MEDS: Baclofen 10 MG TABLET PO SCH ×3 (08:31→19:55)
[2021-08-18] MEDS: Aspirin Enteric Coated 81 MG Tablet PO SCH (08:31)
[2021-08-18] MEDS: Chlorhexidine Rinse 15 ML MOUTHWASH MM SCH ×2 (08:32→19:55)
[2021-08-18] MEDS: Pantoprazole 40 MG VIAL IVP SCH (08:32)
[2021-08-18] MEDS: Folic Acid 1 MG in 0.9 % Sodium Chloride 50 ML IVPB SCH (08:47)
[2021-08-18] MEDS: Thiamine (B-1) 100 MG in 0.9 % Sodium Chloride 50 ML IVPB SCH (08:47)
[2021-08-18] MEDS: Dexmedetomidine HCl 400 MCG/100 ML MLS IVC SCH ×3 (08:48→19:55)
[2021-08-18] MEDS: Ringers Solution, Lactated 1,000 ML IVC SCH (18:24)
[2021-08-18] MEDS: FentaNYL (PF) 1,000 MCG/100 ML IV.SOLN IVC SCH (23:43)
[2021-08-19] MEDS: Piperacillin/Tazobactam 3.375 GM in 0.9 % Sodium Chloride Mini Bag 100 ML IVPB SCH ×4 (00:04→23:39)
[2021-08-19] MEDS: Dexmedetomidine HCl 400 MCG/100 ML MLS IVC SCH ×3 (00:59→12:58)
[2021-08-19 03:44] LABS: VBG Ionized Calcium 1.16 mmol/L (1.15-1.35)
[2021-08-19] MEDS: Ipratropium/Albuterol Neb 3 ML IH SCH ×4 (03:54→20:13)
[2021-08-19 03:56] LABS: Basophils % 0.1 %; Eosinophils # 0.1 K/mcL (0.0-0.6); Eosinophils % 1.7 %; Hematocrit 29.2 % (37.5-50.1); Hemoglobin 9.1 g/dL (12.9-16.9); Immature Granulocytes % 0.6 % (0-4); Lymphocytes # 1.1 K/mcL (0.6-4.6); Lymphocytes % 13.4 %; Mean Corpuscular HGB Conc 31.2 g/dL (31.6-35.5); Mean Corpuscular Volume 89.8 fL (83.0-100.0); Mean Platelet Volume 10.7 fL (9.4-12.4); Monocytes # 0.9 K/mcL (0.0-1.3); Neutrophils # 5.7 K/mcL (1.6-8.9); Platelet Count 134 K/mcL (140-400); Red Blood Count 3.25 M/mcL (4.19-5.50); Red Cell Distribution Width 17.2 % (11.5-14.5); Segmented Neutrophils % 72.2 %; White Blood Count 7.8 K/mcL (4.3-11.1)
[2021-08-19 04:02] LABS: Alanine Aminotransferase 21 Units/L (7-52); Albumin 2.6 g/dL (3.5-5.7); Alkaline Phosphatase 47 Units/L (34-104); Aspartate Amino Transferase 21 Units/L (13-39); BUN/Creatinine Ratio 25 (6-26); Bilirubin,Total 0.4 mg/dL (0.3-1.0); Blood Urea Nitrogen 14 mg/dL (8-23); Calcium 8.2 mg/dL (8.6-10.3); Carbon Dioxide 23 mEq/L (23-29); Chloride 101 mEq/L (98-107); Globulin 2.5 g/dL (2.4-3.5); Glucose 107 mg/dL (70-105); Magnesium 1.6 mg/dL (1.6-2.6); Osmolality,Calculated 291 (280-300); Phosphorous 4.3 mg/dL (2.7-4.5); Potassium 3.3 mEq/L (3.5-5.1); Sodium 140 mEq/L (136-145); Total Protein 5.1 g/dL (6.4-8.9); eGFR For African Americans > 60 (> 60); eGFR For Non-African Americans > 60 (> 60)
[2021-08-19] MEDS: Artificial Tears SOLN 15 ML BOTTLE BOTH EYES SCH ×2 (04:02→08:10)
[2021-08-19] MEDS: Ringers Solution, Lactated 1,000 ML IVC SCH ×2 (04:35→14:35)
[2021-08-19 04:41] LABS: ABG Base Excess -1 mEq/L (-2 to 3); ABG HCO3 23 mEq/L (21-27); ABG Oxygen Saturation 97 % (95-98); ABG PCO2 34 mmHg (35-45); ABG PH 7.44 pH Units (7.32-7.45); ABG PO2 88 mmHg (85-104); ABG TCO2 24 mEq/L (20-26); Blood Gas Modality ASSIST CONTROL; Blood Gas VT 500 cc
[2021-08-19] MEDS: Potassium Chloride 40 MEQ/200 ML BAG IVPB PRN ×2 (04:44→15:10)
[2021-08-19] MEDS: *HR* Heparin 5,000 UNIT/ML VIAL SQ SCH ×2 (05:13→18:05)
[2021-08-19] MEDS: Pantoprazole 40 MG VIAL IVP SCH (08:08)
[2021-08-19] MEDS: Chlorhexidine Rinse 15 ML MOUTHWASH MM SCH (08:08)
[2021-08-19] MEDS: Gabapentin 300 MG CAPSULE PO SCH ×3 (08:09→20:51)
[2021-08-19] MEDS: carvediloL 6.25 MG TABLET PO SCH ×2 (08:09→16:46)
[2021-08-19] MEDS: amLODIPine 5 MG TABLET PO SCH (08:09)
[2021-08-19] MEDS: Baclofen 10 MG TABLET PO SCH ×3 (08:09→20:57)
[2021-08-19] MEDS: Folic Acid 1 MG in 0.9 % Sodium Chloride 50 ML IVPB SCH (09:58)
[2021-08-19] MEDS: Thiamine (B-1) 100 MG in 0.9 % Sodium Chloride 50 ML IVPB SCH (09:58)
[2021-08-19] MEDS ORDERED: carvediloL 6.25 MG TABLET PO ONE (10:00)
[2021-08-19 12:11] LABS: Magnesium 1.7 mg/dL (1.6-2.6); Potassium 3.8 mEq/L (3.5-5.1)
[2021-08-19] MEDS ORDERED: Furosemide 40 MG/4 ML VIAL IVP ONE (15:30)
[2021-08-19] MEDS: Spironolactone 12.5 MG TABLET PO SCH (16:42)
[2021-08-19] MEDS: Aspirin 81 MG TAB.CHEW GTUBE SCH (18:52)
[2021-08-19] MEDS: Acetaminophen 325 MG TABLET PO PRN (18:52)
[2021-08-19] MEDS: Ondansetron 4 MG/2 ML VIAL IVP PRN (19:24)
[2021-08-19] MEDS: *HR* LORazepam 2 MG/ML VIAL IVP PRN (19:30)
[2021-08-19] MEDS: Melatonin 3 MG TABLET PO PRN (23:04)
[2021-08-20 01:45] LABS: Magnesium 1.6 mg/dL (1.6-2.6); Potassium 3.4 mEq/L (3.5-5.1)
[2021-08-20] MEDS: Potassium Chloride 40 MEQ/200 ML BAG IVPB PRN (02:13)
[2021-08-20] MEDS: *HR* LORazepam 2 MG/ML VIAL IVP PRN ×2 (02:19→20:21)
[2021-08-20] MEDS: Acetaminophen 325 MG TABLET PO PRN ×2 (02:19→19:22)
[2021-08-20] MEDS: Ondansetron 4 MG/2 ML VIAL IVP PRN ×2 (02:48→17:53)
[2021-08-20] MEDS: Ipratropium/Albuterol Neb 3 ML IH SCH ×4 (03:38→20:01)
[2021-08-20 04:57] LABS: Basophils % 0.2 %; Eosinophils % 0.5 %; Hematocrit 29.3 % (37.5-50.1); Hemoglobin 9.1 g/dL (12.9-16.9); Immature Granulocytes % 1.3 % (0-4); Lymphocytes # 1.3 K/mcL (0.6-4.6); Lymphocytes % 15.1 %; Mean Corpuscular HGB Conc 31.1 g/dL (31.6-35.5); Mean Corpuscular Hemoglobin 27.7 pg (28.0-33.3); Mean Corpuscular Volume 89.1 fL (83.0-100.0); Mean Platelet Volume 10.5 fL (9.4-12.4); Monocytes # 1.3 K/mcL (0.0-1.3); Monocytes % 15.6 %; Neutrophils # 5.6 K/mcL (1.6-8.9); Platelet Count 224 K/mcL (140-400); Red Blood Count 3.29 M/mcL (4.19-5.50); Red Cell Distribution Width 17.2 % (11.5-14.5); Segmented Neutrophils % 67.3 %; White Blood Count 8.3 K/mcL (4.3-11.1)
[2021-08-20 05:06] LABS: VBG Ionized Calcium 1.13 mmol/L (1.15-1.35)
[2021-08-20 05:18] LABS: Alanine Aminotransferase 18 Units/L (7-52); Albumin 2.6 g/dL (3.5-5.7); Alkaline Phosphatase 66 Units/L (34-104); Aspartate Amino Transferase 22 Units/L (13-39); BUN/Creatinine Ratio 18 (6-26); Bilirubin,Total 0.5 mg/dL (0.3-1.0); Blood Urea Nitrogen 11 mg/dL (8-23); Carbon Dioxide 23 mEq/L (23-29); Chloride 100 mEq/L (98-107); Globulin 2.7 g/dL (2.4-3.5); Glucose 92 mg/dL (70-105); Magnesium 2.1 mg/dL (1.6-2.6); Osmolality,Calculated 275 (280-300); Phosphorous 2.6 mg/dL (2.7-4.5); Potassium 3.5 mEq/L (3.5-5.1); Sodium 133 mEq/L (136-145); Total Protein 5.3 g/dL (6.4-8.9); eGFR For African Americans > 60 (> 60); eGFR For Non-African Americans > 60 (> 60)
[2021-08-20] MEDS: *HR* Heparin 5,000 UNIT/ML VIAL SQ SCH ×2 (05:28→17:03)
[2021-08-20] MEDS ORDERED: Potassium Phosphate 44 MEQ in 0.9 % Sodium Chloride 250 ML IVPB PRN (05:48)
[2021-08-20] MEDS ORDERED: Calcium Gluconate 1gm/50mL 1 GM/50 ML BAG IVPB PRN (06:02)
[2021-08-20] MEDS: Spironolactone 12.5 MG TABLET PO SCH (08:53)
[2021-08-20] MEDS: Pantoprazole 40 MG VIAL IVP SCH (08:59)
[2021-08-20] MEDS: Gabapentin 300 MG CAPSULE PO SCH ×3 (08:59→20:29)
[2021-08-20] MEDS: Piperacillin/Tazobactam 3.375 GM in 0.9 % Sodium Chloride Mini Bag 100 ML IVPB SCH ×3 (08:59→23:51)
[2021-08-20] MEDS: Aspirin 81 MG TAB.CHEW GTUBE SCH (08:59)
[2021-08-20] MEDS: carvediloL 6.25 MG TABLET PO SCH ×2 (08:59→16:18)
[2021-08-20] MEDS: Baclofen 10 MG TABLET PO SCH ×3 (08:59→20:29)
[2021-08-20] MEDS: Folic Acid 1 MG in 0.9 % Sodium Chloride 50 ML IVPB SCH (09:05)
[2021-08-20] MEDS: Thiamine (B-1) 100 MG in 0.9 % Sodium Chloride 50 ML IVPB SCH (09:05)
[2021-08-20] MEDS ORDERED: D5% in Lactated Ringers 1,000 ML IVC SCH (10:30)
[2021-08-20] MEDS ORDERED: Naloxone 0.4 MG/ML INJ IVP PRN (14:13)
[2021-08-20] MEDS ORDERED: Artificial Tears SOLN 15 ML BOTTLE BOTH EYES PRN (14:13)
[2021-08-20] MEDS ORDERED: D5% in Water 1,000 ML IVC PRN (14:13)
[2021-08-20] MEDS ORDERED: *HR* Dextrose 50 % in Water (Syg) 50 ML SYRINGE IVP PRN (14:13)
[2021-08-20] MEDS ORDERED: Dextrose Gel 15 GM/37.5 ML TUBE PO PRN ×2 (14:13)
[2021-08-20] MEDS: D5% in Lactated Ringers 1,000 ML IVC SCH (14:43)
[2021-08-20] MEDS ORDERED: carvediloL 6.25 MG TABLET PO SCH (17:00)
[2021-08-21] MEDS: Ondansetron 4 MG/2 ML VIAL IVP PRN (01:05)
[2021-08-21] MEDS: *HR* LORazepam 2 MG/ML VIAL IVP PRN ×5 (01:05→21:19)
[2021-08-21 01:21] LABS: Basophils % 0.3 %; Eosinophils % 0.4 %; Hematocrit 29.4 % (37.5-50.1); Hemoglobin 9.5 g/dL (12.9-16.9); Immature Granulocytes % 0.9 % (0-4); Lymphocytes # 1.2 K/mcL (0.6-4.6); Lymphocytes % 14.9 %; Mean Corpuscular HGB Conc 32.3 g/dL (31.6-35.5); Mean Corpuscular Hemoglobin 27.9 pg (28.0-33.3); Mean Corpuscular Volume 86.2 fL (83.0-100.0); Mean Platelet Volume 9.9 fL (9.4-12.4); Monocytes # 1.4 K/mcL (0.0-1.3); Monocytes % 17.6 %; Neutrophils # 5.1 K/mcL (1.6-8.9); Platelet Count 302 K/mcL (140-400); Red Blood Count 3.41 M/mcL (4.19-5.50); Red Cell Distribution Width 17.2 % (11.5-14.5); Segmented Neutrophils % 65.9 %; White Blood Count 7.8 K/mcL (4.3-11.1)
[2021-08-21] MEDS: Ipratropium/Albuterol Neb 3 ML IH SCH ×4 (03:48→20:24)
[2021-08-21] MEDS: D5% in Lactated Ringers 1,000 ML IVC SCH ×2 (04:12→18:57)
[2021-08-21] MEDS: *HR* Heparin 5,000 UNIT/ML VIAL SQ SCH ×2 (05:33→17:02)
[2021-08-21] MEDS: Piperacillin/Tazobactam 3.375 GM in 0.9 % Sodium Chloride Mini Bag 100 ML IVPB SCH ×2 (08:09→17:02)
[2021-08-21] MEDS: Pantoprazole 40 MG VIAL IVP SCH (08:09)
[2021-08-21] MEDS: carvediloL 6.25 MG TABLET PO SCH ×2 (08:10→15:31)
[2021-08-21] MEDS: Gabapentin 300 MG CAPSULE PO SCH ×3 (08:10→21:19)
[2021-08-21] MEDS: Spironolactone 12.5 MG TABLET PO SCH (08:10)
[2021-08-21] MEDS: Baclofen 10 MG TABLET PO SCH ×3 (08:10→21:19)
[2021-08-21] MEDS: Aspirin 81 MG TAB.CHEW PO SCH (08:11)
[2021-08-21 08:46] LABS: Alanine Aminotransferase 18 Units/L (7-52); Albumin 2.6 g/dL (3.5-5.7); Alkaline Phosphatase 61 Units/L (34-104); Aspartate Amino Transferase 29 Units/L (13-39); BUN/Creatinine Ratio 16 (6-26); Bilirubin,Total 0.4 mg/dL (0.3-1.0); Blood Urea Nitrogen 10 mg/dL (8-23); Calcium 8.1 mg/dL (8.6-10.3); Carbon Dioxide 27 mEq/L (23-29); Chloride 100 mEq/L (98-107); Globulin 2.6 g/dL (2.4-3.5); Glucose 114 mg/dL (70-105); Magnesium 1.6 mg/dL (1.6-2.6); Osmolality,Calculated 278 (280-300); Potassium 3.6 mEq/L (3.5-5.1); Sodium 134 mEq/L (136-145); Total Protein 5.2 g/dL (6.4-8.9); eGFR For African Americans > 60 (> 60); eGFR For Non-African Americans > 60 (> 60)
[2021-08-21] MEDS: Acetaminophen 325 MG TABLET PO PRN (09:55)
[2021-08-21] MEDS: Thiamine (B-1) 100 MG in 0.9 % Sodium Chloride 50 ML IVPB SCH (09:56)
[2021-08-21] MEDS: Folic Acid 1 MG in 0.9 % Sodium Chloride 50 ML IVPB SCH (09:57)
[2021-08-21] MEDS: Melatonin 3 MG TABLET PO PRN (21:19)
[2021-08-22] MEDS: Piperacillin/Tazobactam 3.375 GM in 0.9 % Sodium Chloride Mini Bag 100 ML IVPB SCH ×4 (01:12→23:03)
[2021-08-22] MEDS: Ipratropium/Albuterol Neb 3 ML IH SCH ×4 (03:44→20:05)
[2021-08-22] MEDS: *HR* LORazepam 2 MG/ML VIAL IVP PRN ×3 (05:16→21:10)
[2021-08-22] MEDS: *HR* Heparin 5,000 UNIT/ML VIAL SQ SCH ×2 (05:17→16:56)
[2021-08-22 06:03] LABS: Basophils % 0.3 %; Eosinophils % 0.3 %; Hematocrit 28.1 % (37.5-50.1); Hemoglobin 8.5 g/dL (12.9-16.9); Immature Granulocytes % 1.2 % (0-4); Lymphocytes % 14.4 %; Mean Corpuscular HGB Conc 30.2 g/dL (31.6-35.5); Mean Corpuscular Hemoglobin 27.6 pg (28.0-33.3); Mean Corpuscular Volume 91.2 fL (83.0-100.0); Monocytes # 1.5 K/mcL (0.0-1.3); Monocytes % 21.4 %; Neutrophils # 4.3 K/mcL (1.6-8.9); Platelet Count 348 K/mcL (140-400); Red Blood Count 3.08 M/mcL (4.19-5.50); Red Cell Distribution Width 17.7 % (11.5-14.5); Segmented Neutrophils % 62.4 %; White Blood Count 6.9 K/mcL (4.3-11.1)
[2021-08-22 06:17] LABS: Anisocytosis 1+ (Not Present); Platelet Estimate Normal (Normal); Poikilocytosis 1+ (Not Present); Target Cells 1+ (Not Present)
[2021-08-22] MEDS: carvediloL 6.25 MG TABLET PO SCH ×2 (07:51→16:55)
[2021-08-22] MEDS: Spironolactone 12.5 MG TABLET PO SCH (07:51)
[2021-08-22] MEDS: Aspirin 81 MG TAB.CHEW PO SCH (07:51)
[2021-08-22] MEDS: Acetaminophen 325 MG TABLET PO PRN (07:52)
[2021-08-22] MEDS: Baclofen 10 MG TABLET PO SCH ×3 (07:52→21:09)
[2021-08-22] MEDS: Gabapentin 300 MG CAPSULE PO SCH ×3 (07:52→21:10)
[2021-08-22] MEDS: Pantoprazole 40 MG VIAL IVP SCH (07:53)
[2021-08-22] MEDS: Thiamine (B-1) 100 MG in 0.9 % Sodium Chloride 50 ML IVPB SCH (07:53)
[2021-08-22] MEDS: Folic Acid 1 MG in 0.9 % Sodium Chloride 50 ML IVPB SCH (07:53)
[2021-08-22] MEDS ORDERED: carvediloL 6.25 MG TABLET PO ONE (11:20)
[2021-08-22] MEDS: Furosemide 40 MG/4 ML VIAL IVP SCH (12:34)
[2021-08-22 13:32] LABS: Influenza A PCR Negative (Negative); Influenza B PCR Negative (Negative); Resp. Syncytial Virus PCR Negative (Negative)
[2021-08-22 13:34] LABS: SARS-CoV-2 by PCR (In House) Negative (Negative)
[2021-08-22 16:53] LABS: Alanine Aminotransferase 23 Units/L (7-52); Albumin 2.7 g/dL (3.5-5.7); Albumin/Globulin Ratio 0.9 (1.1-2.2); Alkaline Phosphatase 91 Units/L (34-104); Aspartate Amino Transferase 31 Units/L (13-39); BUN/Creatinine Ratio 15 (6-26); Bilirubin,Total 0.5 mg/dL (0.3-1.0); Blood Urea Nitrogen 10 mg/dL (8-23); Calcium 8.3 mg/dL (8.6-10.3); Carbon Dioxide 27 mEq/L (23-29); Chloride 98 mEq/L (98-107); Globulin 2.9 g/dL (2.4-3.5); Glucose 113 mg/dL (70-105); Osmolality,Calculated 276 (280-300); Potassium 3.4 mEq/L (3.5-5.1); Sodium 133 mEq/L (136-145); Total Protein 5.6 g/dL (6.4-8.9); eGFR For African Americans > 60 (> 60); eGFR For Non-African Americans > 60 (> 60)
[2021-08-22] MEDS: D5% in Lactated Ringers 1,000 ML IVC SCH ×2 (16:56→21:47)
[2021-08-22 17:11] LABS: ABG Base Excess 3 mEq/L (-2 to 3); ABG HCO3 27 mEq/L (21-27); ABG Oxygen Saturation 91 % (95-98); ABG PCO2 36 mmHg (35-45); ABG PH 7.48 pH Units (7.32-7.45); ABG PO2 57 mmHg (85-104); ABG TCO2 28 mEq/L (20-26)
[2021-08-22] MEDS: cloNIDine HCL 0.1 MG TABLET PO SCH (21:09)
[2021-08-23] MEDS: Acetaminophen 325 MG TABLET PO PRN ×2 (02:51→19:37)
[2021-08-23] MEDS: *HR* Metoprolol 5 MG/5 ML VIAL IVP PRN ×2 (03:05→04:05)
[2021-08-23] MEDS: Levalbuterol Neb 1.25 MG/3 ML IH SCH ×4 (03:15→21:06)
[2021-08-23 03:28] LABS: Hematocrit 26.5 % (37.5-50.1); Hemoglobin 8.4 g/dL (12.9-16.9); Mean Corpuscular HGB Conc 31.7 g/dL (31.6-35.5); Mean Corpuscular Hemoglobin 27.6 pg (28.0-33.3); Mean Corpuscular Volume 87.2 fL (83.0-100.0); Mean Platelet Volume 10.7 fL (9.4-12.4); Platelet Count 467 K/mcL (140-400); Red Blood Count 3.04 M/mcL (4.19-5.50); Red Cell Distribution Width 17.9 % (11.5-14.5); White Blood Count 7.6 K/mcL (4.3-11.1)
[2021-08-23 03:45] LABS: Alanine Aminotransferase 25 Units/L (7-52); Albumin 2.7 g/dL (3.5-5.7); Albumin/Globulin Ratio 0.9 (1.1-2.2); Alkaline Phosphatase 111 Units/L (34-104); Aspartate Amino Transferase 34 Units/L (13-39); BUN/Creatinine Ratio 19 (6-26); Bilirubin,Total 0.5 mg/dL (0.3-1.0); Blood Urea Nitrogen 13 mg/dL (8-23); Calcium 8.6 mg/dL (8.6-10.3); Carbon Dioxide 27 mEq/L (23-29); Chloride 98 mEq/L (98-107); Glucose 92 mg/dL (70-105); Osmolality,Calculated 278 (280-300); Potassium 3.4 mEq/L (3.5-5.1); Sodium 134 mEq/L (136-145); Total Protein 5.7 g/dL (6.4-8.9); eGFR For African Americans > 60 (> 60); eGFR For Non-African Americans > 60 (> 60)
[2021-08-23] MEDS ORDERED: *HR* Metoprolol 5 MG/5 ML VIAL IVP ONE ×2 (04:01→04:02)
[2021-08-23 04:06] LABS: Anisocytosis 1+ (Not Present); Basophils # 0.1 K/mcL (0.0-0.2); Large Platelets Present (Not Present); Lymphocytes # 0.8 K/mcL (0.6-4.6); Monocytes # 1.7 K/mcL (0.0-1.3); Platelet Estimate Increased (Normal); Reactive Lymphocytes Present (Not Present); Toxic Granulation Present (Not Present)
[2021-08-23 04:12] LABS: ABG Base Excess 1 mEq/L (-2 to 3); ABG HCO3 25 mEq/L (21-27); ABG Oxygen Saturation 91 % (95-98); ABG PCO2 33 mmHg (35-45); ABG PH 7.48 pH Units (7.32-7.45); ABG PO2 55 mmHg (85-104); ABG TCO2 26 mEq/L (20-26)
[2021-08-23] MEDS: *HR* Heparin 5,000 UNIT/ML VIAL SQ SCH ×2 (05:12→17:21)
[2021-08-23] MEDS ORDERED: Acetaminophen IV 500 MG/50 ML BAG IVPB ONE (06:15)
[2021-08-23] MEDS: Aspirin 81 MG TAB.CHEW PO SCH (07:51)
[2021-08-23] MEDS: Baclofen 10 MG TABLET PO SCH ×3 (07:52→19:37)
[2021-08-23] MEDS: Spironolactone 12.5 MG TABLET PO SCH (07:52)
[2021-08-23] MEDS: cloNIDine HCL 0.1 MG TABLET PO SCH ×2 (07:52→19:37)
[2021-08-23] MEDS: Gabapentin 300 MG CAPSULE PO SCH ×3 (07:52→19:38)
[2021-08-23] MEDS: carvediloL 6.25 MG TABLET PO SCH ×2 (07:52→17:20)
[2021-08-23] MEDS: Piperacillin/Tazobactam 3.375 GM in 0.9 % Sodium Chloride Mini Bag 100 ML IVPB SCH ×3 (07:53→23:31)
[2021-08-23] MEDS: Furosemide 40 MG/4 ML VIAL IVP SCH ×3 (07:53→19:36)
[2021-08-23] MEDS: Pantoprazole 40 MG VIAL IVP SCH (07:54)
[2021-08-23] MEDS ORDERED: Furosemide 20 MG/2 ML VIAL IVP ONE (08:31)
[2021-08-23 09:49] LABS: Adenovirus Not Detected (Not Detect); Bordetella Pertussis Not Detected (Not Detect); Chlamydophila pneumoniae Not Detected (Not Detect); Coronavirus 229E Not Detected (Not Detect); Coronavirus HKU1 Not Detected (Not Detect); Coronavirus NL63 Not Detected (Not Detect); Coronavirus OC43 Not Detected (Not Detect); Human Metapneumovirus Not Detected (Not Detect); Human Rhinovirus/Enterovirus Not Detected (Not Detect); Influenza A Subtype 2009 H1 Not Detected (Not Detect); Influenza B Not Detected (Not Detect); Mycoplasma pneumoniae Not Detected (Not Detect); Parainfluenza Virus 1 Not Detected (Not Detect); Parainfluenza Virus 2 Not Detected (Not Detect); Parainfluenza Virus 3 Not Detected (Not Detect); Parainfluenza Virus 4 Not Detected (Not Detect); Respiratory Syncytial Virus Not Detected (Not Detect); SARS-CoV-2 Not Detected (Not Detect)
[2021-08-23 09:52] LABS: Magnesium 1.8 mg/dL (1.6-2.6); Phosphorous 3.8 mg/dL (2.7-4.5)
[2021-08-23] MEDS: Spironolactone 25 MG TABLET PO SCH (10:11)
[2021-08-23] MEDS: Vancomycin 1,500 MG/265 ML IV.SOLN IVPB SCH ×2 (10:11→22:14)
[2021-08-23 10:24] LABS: Bilirubin,Urine Negative (Negative); Blood,Urine Large (Negative); Clarity,Urine Clear (Clear); Color,Urine Light-Yellow (Yellow); Glucose,Urine (UA) Normal (Normal); Ketones,Urine 40 mg/dL (Negative); Leukocyte Esterase,Urine Negative (Negative); Mucus,Urine Many per lpf (None-Few); Nitrite,Urine Negative (Negative); PH,Urine 6.5 pH Units (5.0-8.0); Protein,Urine 50 mg/dL (Neg-Trace); RBC,Urine TNTC per hpf (0-3); Specific Gravity,Urine 1.014 (1.010-1.025); Squamous Epithelial Cell,Urine Few per hpf (None-Few); Urobilinogen,Urine Normal (Normal)
[2021-08-23 11:30] LABS: C-Reactive Protein 269 mg/L (Less than 10)
[2021-08-23] MEDS: Folic Acid 1 MG in 0.9 % Sodium Chloride 50 ML IVPB SCH (11:41)
[2021-08-23] MEDS: Thiamine (B-1) 100 MG in 0.9 % Sodium Chloride 50 ML IVPB SCH (13:25)
[2021-08-24 00:17] LABS: Adenovirus F 40/41 PCR Not detected (Not detect); Astrovirus PCR Not detected (Not detect); C.difficile Toxin A/B Gene PCR Not detected (Not detect); Campylobacter by PCR Not detected (Not detect); Cryptosporidium by PCR Not detected (Not detect); Cyclospora cayetanensis PCR Not detected (Not detect); E. coli O157 by PCR Not detected (Not detect); Entamoeba histolytica PCR Not detected (Not detect); Enteroaggregative E.coli(EAEC) Not detected (Not detect); Enteropathogenic E.coli(EPEC) Not detected (Not detect); Enterotoxigenic E.coli (ETEC) Not detected (Not detect); Giardia lamblia PCR Not detected (Not detect); Norovirus GI/GII PCR Not detected (Not detect); Plesiomonas shigelloides PCR Not detected (Not detect); Rotavirus A PCR Not detected (Not detect); Salmonella PCR Not detected (Not detect); Sapovirus PCR Not detected (Not detect); Shig/EnteroinvasiveE coli EIEC Not detected (Not detect); Shigalike tox-prod E coli STEC Not detected (Not detect); Vibrio PCR Not detected (Not detect); Vibrio cholerae PCR Not detected (Not detect); Yersinia enterocolitica PCR Not detected (Not detect)
[2021-08-24] MEDS: *HR* LORazepam 2 MG/ML VIAL IVP PRN (01:05)
[2021-08-24] MEDS: Levalbuterol Neb 1.25 MG/3 ML IH SCH ×4 (03:41→20:45)
[2021-08-24] MEDS: *HR* Heparin 5,000 UNIT/ML VIAL SQ SCH ×2 (05:09→17:08)
[2021-08-24 05:17] LABS: Basophils % 0.2 %; Eosinophils # 0.1 K/mcL (0.0-0.6); Eosinophils % 0.8 %; Hematocrit 24.5 % (37.5-50.1); Hemoglobin 8.1 g/dL (12.9-16.9); Immature Granulocytes % 1.1 % (0-4); Lymphocytes # 1.3 K/mcL (0.6-4.6); Mean Corpuscular HGB Conc 33.1 g/dL (31.6-35.5); Mean Corpuscular Hemoglobin 28.6 pg (28.0-33.3); Mean Corpuscular Volume 86.6 fL (83.0-100.0); Mean Platelet Volume 10.7 fL (9.4-12.4); Monocytes # 1.3 K/mcL (0.0-1.3); Monocytes % 15.2 %; Neutrophils # 5.5 K/mcL (1.6-8.9); Platelet Count 566 K/mcL (140-400); Red Blood Count 2.83 M/mcL (4.19-5.50); Red Cell Distribution Width 17.9 % (11.5-14.5); Segmented Neutrophils % 66.7 %; White Blood Count 8.3 K/mcL (4.3-11.1)
[2021-08-24 05:26] LABS: Alanine Aminotransferase 31 Units/L (7-52); Albumin 2.6 g/dL (3.5-5.7); Albumin/Globulin Ratio 0.9 (1.1-2.2); Alkaline Phosphatase 120 Units/L (34-104); Aspartate Amino Transferase 52 Units/L (13-39); BUN/Creatinine Ratio 15 (6-26); Bilirubin,Total 0.5 mg/dL (0.3-1.0); Blood Urea Nitrogen 11 mg/dL (8-23); Calcium 8.2 mg/dL (8.6-10.3); Carbon Dioxide 28 mEq/L (23-29); Chloride 96 mEq/L (98-107); Globulin 2.9 g/dL (2.4-3.5); Glucose 102 mg/dL (70-105); Magnesium 1.6 mg/dL (1.6-2.6); Osmolality,Calculated 274 (280-300); Phosphorous 4.1 mg/dL (2.7-4.5); Sodium 132 mEq/L (136-145); Total Protein 5.5 g/dL (6.4-8.9); eGFR For African Americans > 60 (> 60); eGFR For Non-African Americans > 60 (> 60)
[2021-08-24] MEDS: Piperacillin/Tazobactam 3.375 GM in 0.9 % Sodium Chloride Mini Bag 100 ML IVPB SCH ×3 (07:43→23:40)
[2021-08-24] MEDS: Pantoprazole 40 MG VIAL IVP SCH (07:44)
[2021-08-24] MEDS: Baclofen 10 MG TABLET PO SCH ×3 (07:44→21:42)
[2021-08-24] MEDS: Aspirin 81 MG TAB.CHEW PO SCH (07:44)
[2021-08-24] MEDS: Furosemide 40 MG/4 ML VIAL IVP SCH ×2 (07:44→21:40)
[2021-08-24] MEDS: carvediloL 6.25 MG TABLET PO SCH ×2 (07:45→17:08)
[2021-08-24] MEDS: Spironolactone 25 MG TABLET PO SCH (07:45)
[2021-08-24] MEDS: cloNIDine HCL 0.1 MG TABLET PO SCH ×2 (07:45→21:41)
[2021-08-24] MEDS: Gabapentin 300 MG CAPSULE PO SCH ×3 (07:45→21:41)
[2021-08-24] MEDS ORDERED: Potassium Chloride Elixir 20 MEQ/15 ML UDC PO ONE (07:46)
[2021-08-24] MEDS ORDERED: Isovue-370 500 ML BOTTLE IVP ONE (08:17)
[2021-08-24] MEDS: Thiamine (B-1) 100 MG in 0.9 % Sodium Chloride 50 ML IVPB SCH (09:57)
[2021-08-24 11:53] LABS: ABG Base Excess 5 mEq/L (-2 to 3); ABG HCO3 30 mEq/L (21-27); ABG Oxygen Saturation 92 % (95-98); ABG PCO2 44 mmHg (35-45); ABG PH 7.44 pH Units (7.32-7.45); ABG PO2 63 mmHg (85-104); ABG TCO2 31 mEq/L (20-26)
[2021-08-24] MEDS: Vancomycin 1,500 MG/265 ML IV.SOLN IVPB SCH ×2 (12:08→23:05)
[2021-08-24] MEDS ORDERED: *HR* OxyCODONE Immed Rel 5 MG TABLET PO ONE (12:12)
[2021-08-24] MEDS: Acetaminophen 325 MG TABLET PO PRN (19:00)
[2021-08-24] MEDS: Vancomycin 1,750 MG/517.5 ML IV.SOLN IVPB SCH (23:43)
[2021-08-25] MEDS: *HR* OxyCODONE/APAP 5/325 TABLET PO PRN ×3 (00:44→18:21)
[2021-08-25 03:29] LABS: Basophils % 0.3 %; Eosinophils # 0.1 K/mcL (0.0-0.6); Eosinophils % 1.4 %; Hematocrit 25.6 % (37.5-50.1); Hemoglobin 8.4 g/dL (12.9-16.9); Lymphocytes # 1.1 K/mcL (0.6-4.6); Lymphocytes % 12.9 %; Mean Corpuscular HGB Conc 32.8 g/dL (31.6-35.5); Mean Corpuscular Hemoglobin 28.7 pg (28.0-33.3); Mean Corpuscular Volume 87.4 fL (83.0-100.0); Mean Platelet Volume 10.4 fL (9.4-12.4); Monocytes % 11.6 %; Neutrophils # 6.4 K/mcL (1.6-8.9); Platelet Count 707 K/mcL (140-400); Red Blood Count 2.93 M/mcL (4.19-5.50); Red Cell Distribution Width 17.9 % (11.5-14.5); Segmented Neutrophils % 72.8 %; White Blood Count 8.8 K/mcL (4.3-11.1)
[2021-08-25 03:46] LABS: Magnesium 1.6 mg/dL (1.6-2.6); Phosphorous 4.5 mg/dL (2.7-4.5)
[2021-08-25] MEDS: *HR* LORazepam 2 MG/ML VIAL IVP PRN ×2 (03:49→22:42)
[2021-08-25 03:52] LABS: Alanine Aminotransferase 35 Units/L (7-52); Albumin 2.7 g/dL (3.5-5.7); Albumin/Globulin Ratio 0.8 (1.1-2.2); Alkaline Phosphatase 130 Units/L (34-104); Aspartate Amino Transferase 50 Units/L (13-39); BUN/Creatinine Ratio 16 (6-26); Bilirubin,Direct 0.1 mg/dL (0.0-0.2); Bilirubin,Indirect 0.4 mg/dL (0.0-1.0); Bilirubin,Total 0.5 mg/dL (0.3-1.0); Blood Urea Nitrogen 12 mg/dL (8-23); Calcium 8.6 mg/dL (8.6-10.3); Carbon Dioxide 29 mEq/L (23-29); Chloride 96 mEq/L (98-107); Globulin 3.2 g/dL (2.4-3.5); Glucose 101 mg/dL (70-105); Osmolality,Calculated 278 (280-300); Potassium 3.4 mEq/L (3.5-5.1); Sodium 134 mEq/L (136-145); Total Protein 5.9 g/dL (6.4-8.9); eGFR For African Americans > 60 (> 60); eGFR For Non-African Americans > 60 (> 60)
[2021-08-25] MEDS: Levalbuterol Neb 1.25 MG/3 ML IH SCH ×4 (04:38→20:41)
[2021-08-25] MEDS: *HR* Heparin 5,000 UNIT/ML VIAL SQ SCH ×2 (07:01→17:29)
[2021-08-25] MEDS: Aspirin 81 MG TAB.CHEW PO SCH (09:32)
[2021-08-25] MEDS: Gabapentin 300 MG CAPSULE PO SCH ×3 (09:32→19:58)
[2021-08-25] MEDS: cloNIDine HCL 0.1 MG TABLET PO SCH ×2 (09:32→19:57)
[2021-08-25] MEDS: Spironolactone 25 MG TABLET PO SCH (09:32)
[2021-08-25] MEDS: Furosemide 40 MG/4 ML VIAL IVP SCH ×2 (09:32→19:59)
[2021-08-25] MEDS: carvediloL 6.25 MG TABLET PO SCH ×2 (09:32→16:35)
[2021-08-25] MEDS: Baclofen 10 MG TABLET PO SCH ×3 (09:32→19:58)
[2021-08-25] MEDS: Pantoprazole 40 MG VIAL IVP SCH (09:33)
[2021-08-25] MEDS: Piperacillin/Tazobactam 3.375 GM in 0.9 % Sodium Chloride Mini Bag 100 ML IVPB SCH ×2 (09:34→16:26)
[2021-08-25] MEDS: Thiamine (B-1) 100 MG in 0.9 % Sodium Chloride 50 ML IVPB SCH (11:14)
[2021-08-25 11:24] LABS: RBC,Pleural Fluid 8000 RBC/mcL
[2021-08-25 11:52] LABS: Appearance of Pleural Fl Hazy (Clear); Basophils,Pleural Fluid 0 %; Eosinophils,Pleural Fluid 0 %
[2021-08-25 11:58] LABS: Total Protein,Pleural Fluid 2.4 g/dL
[2021-08-25 12:56] LABS: Lactate Dehydrogenase 352 Units/L (140-271); Total Protein 5.8 g/dL (6.4-8.9)
[2021-08-25] MEDS: Vancomycin 1,750 MG/517.5 ML IV.SOLN IVPB SCH (13:12)
[2021-08-25] MEDS ORDERED: Piperacillin/Tazobactam 3.375 GM VIAL ONE (16:25)
[2021-08-25] MEDS: Melatonin 3 MG TABLET PO PRN (19:58)
[2021-08-25] MEDS: *HR* Metoprolol 5 MG/5 ML VIAL IVP PRN (19:58)
[2021-08-25] MEDS: Ondansetron 4 MG/2 ML VIAL IVP PRN (20:03)
[2021-08-26] MEDS: Piperacillin/Tazobactam 3.375 GM in 0.9 % Sodium Chloride Mini Bag 100 ML IVPB SCH ×4 (00:21→23:40)
[2021-08-26] MEDS: Vancomycin 1,750 MG/517.5 ML IV.SOLN IVPB SCH ×3 (00:26→23:41)
[2021-08-26] MEDS: *HR* LORazepam 2 MG/ML VIAL IVP PRN (03:05)
[2021-08-26] MEDS: Levalbuterol Neb 1.25 MG/3 ML IH SCH ×4 (04:13→20:26)
[2021-08-26] MEDS: *HR* Heparin 5,000 UNIT/ML VIAL SQ SCH ×2 (05:27→17:56)
[2021-08-26] MEDS: cloNIDine HCL 0.1 MG TABLET PO SCH ×2 (08:04→19:59)
[2021-08-26] MEDS: *HR* OxyCODONE/APAP 5/325 TABLET PO PRN ×2 (08:04→17:55)
[2021-08-26] MEDS: Aspirin 81 MG TAB.CHEW PO SCH (08:04)
[2021-08-26] MEDS: Spironolactone 25 MG TABLET PO SCH (08:04)
[2021-08-26] MEDS: Baclofen 10 MG TABLET PO SCH ×3 (08:05→20:00)
[2021-08-26] MEDS: Gabapentin 300 MG CAPSULE PO SCH ×3 (08:05→20:00)
[2021-08-26] MEDS: carvediloL 6.25 MG TABLET PO SCH ×2 (08:05→17:53)
[2021-08-26] MEDS: Furosemide 40 MG/4 ML VIAL IVP SCH ×2 (08:06→20:00)
[2021-08-26] MEDS: Pantoprazole 40 MG VIAL IVP SCH (08:06)
[2021-08-26 11:34] LABS: Magnesium 1.7 mg/dL (1.6-2.6); Phosphorous 4.4 mg/dL (2.7-4.5)
[2021-08-26] MEDS: Thiamine (B-1) 100 MG in 0.9 % Sodium Chloride 50 ML IVPB SCH (12:49)
[2021-08-26] MEDS: Melatonin 3 MG TABLET PO PRN (23:40)
[2021-08-26] MEDS: Acetaminophen 325 MG TABLET PO PRN (23:40)
[2021-08-27] MEDS: *HR* OxyCODONE/APAP 5/325 TABLET PO PRN ×3 (01:35→20:04)
[2021-08-27] MEDS: Levalbuterol Neb 1.25 MG/3 ML IH SCH ×4 (03:36→20:42)
[2021-08-27 04:24] LABS: Basophils # 0.1 K/mcL (0.0-0.2); Basophils % 0.6 %; Eosinophils # 0.2 K/mcL (0.0-0.6); Eosinophils % 1.9 %; Hematocrit 28.6 % (37.5-50.1); Immature Granulocytes % 0.9 % (0-4); Lymphocytes # 1.4 K/mcL (0.6-4.6); Lymphocytes % 15.7 %; Mean Corpuscular HGB Conc 31.5 g/dL (31.6-35.5); Mean Corpuscular Hemoglobin 27.9 pg (28.0-33.3); Mean Corpuscular Volume 88.5 fL (83.0-100.0); Mean Platelet Volume 10.1 fL (9.4-12.4); Monocytes # 0.9 K/mcL (0.0-1.3); Monocytes % 10.2 %; Neutrophils # 6.2 K/mcL (1.6-8.9); Platelet Count 882 K/mcL (140-400); Red Blood Count 3.23 M/mcL (4.19-5.50); Red Cell Distribution Width 17.9 % (11.5-14.5); Segmented Neutrophils % 70.7 %; White Blood Count 8.8 K/mcL (4.3-11.1)
[2021-08-27 04:46] LABS: BUN/Creatinine Ratio 11 (6-26); Blood Urea Nitrogen 10 mg/dL (8-23); Calcium 8.7 mg/dL (8.6-10.3); Carbon Dioxide 33 mEq/L (23-29); Chloride 97 mEq/L (98-107); Glucose 120 mg/dL (70-105); Osmolality,Calculated 282 (280-300); Potassium 3.5 mEq/L (3.5-5.1); Sodium 136 mEq/L (136-145); eGFR For African Americans > 60 (> 60); eGFR For Non-African Americans > 60 (> 60)
[2021-08-27] MEDS: *HR* Heparin 5,000 UNIT/ML VIAL SQ SCH ×2 (06:07→16:44)
[2021-08-27] MEDS: Pantoprazole 40 MG VIAL IVP SCH (07:44)
[2021-08-27] MEDS: Piperacillin/Tazobactam 3.375 GM in 0.9 % Sodium Chloride Mini Bag 100 ML IVPB SCH ×3 (07:44→23:54)
[2021-08-27] MEDS: Furosemide 40 MG/4 ML VIAL IVP SCH ×2 (07:44→20:04)
[2021-08-27] MEDS: carvediloL 6.25 MG TABLET PO SCH ×2 (07:45→16:43)
[2021-08-27] MEDS: Spironolactone 25 MG TABLET PO SCH (07:45)
[2021-08-27] MEDS: Aspirin 81 MG TAB.CHEW PO SCH (07:45)
[2021-08-27] MEDS: cloNIDine HCL 0.1 MG TABLET PO SCH (07:45)
[2021-08-27] MEDS: Gabapentin 300 MG CAPSULE PO SCH ×3 (07:45→20:04)
[2021-08-27] MEDS: Baclofen 10 MG TABLET PO SCH ×3 (07:45→20:04)
[2021-08-27] MEDS: Thiamine (B-1) 100 MG in 0.9 % Sodium Chloride 50 ML IVPB SCH (07:47)
[2021-08-27] MEDS: Vancomycin 1,750 MG/517.5 ML IV.SOLN IVPB SCH ×2 (11:47→23:54)
[2021-08-27] MEDS: amLODIPine 5 MG TABLET PO SCH (11:47)
[2021-08-27] MEDS: Isosorbide MONOnitrate (24 HR) 30 MG TAB.ER.24H PO SCH (14:44)
[2021-08-27] MEDS: Acetaminophen 325 MG TABLET PO PRN (18:18)
[2021-08-27 21:27] LABS: Fluid Source for Cholesterol PLEURAL FLUID
[2021-08-28 02:05] LABS: Basophils # 0.1 K/mcL (0.0-0.2); Basophils % 0.7 %; Eosinophils # 0.2 K/mcL (0.0-0.6); Immature Granulocytes % 0.8 % (0-4); Lymphocytes # 1.7 K/mcL (0.6-4.6); Lymphocytes % 19.5 %; Mean Corpuscular Hemoglobin 27.4 pg (28.0-33.3); Mean Corpuscular Volume 88.4 fL (83.0-100.0); Mean Platelet Volume 10.2 fL (9.4-12.4); Monocytes # 0.8 K/mcL (0.0-1.3); Monocytes % 9.1 %; Platelet Count 931 K/mcL (140-400); Red Blood Count 3.28 M/mcL (4.19-5.50); Red Cell Distribution Width 17.9 % (11.5-14.5); Segmented Neutrophils % 67.9 %; White Blood Count 8.8 K/mcL (4.3-11.1)
[2021-08-28 02:24] LABS: BUN/Creatinine Ratio 12 (6-26); Blood Urea Nitrogen 12 mg/dL (8-23); Calcium 8.5 mg/dL (8.6-10.3); Carbon Dioxide 31 mEq/L (23-29); Chloride 96 mEq/L (98-107); Glucose 115 mg/dL (70-105); Osmolality,Calculated 281 (280-300); Potassium 3.4 mEq/L (3.5-5.1); Sodium 135 mEq/L (136-145); eGFR For African Americans > 60 (> 60); eGFR For Non-African Americans > 60 (> 60)
[2021-08-28] MEDS: Levalbuterol Neb 1.25 MG/3 ML IH SCH ×4 (03:55→20:44)
[2021-08-28] MEDS: *HR* Heparin 5,000 UNIT/ML VIAL SQ SCH ×2 (05:31→17:21)
[2021-08-28] MEDS: *HR* OxyCODONE/APAP 5/325 TABLET PO PRN ×2 (05:31→20:50)
[2021-08-28] MEDS: Furosemide 40 MG/4 ML VIAL IVP SCH ×2 (08:32→20:49)
[2021-08-28] MEDS: Piperacillin/Tazobactam 3.375 GM in 0.9 % Sodium Chloride Mini Bag 100 ML IVPB SCH (08:32)
[2021-08-28] MEDS: Baclofen 10 MG TABLET PO SCH ×3 (08:33→20:50)
[2021-08-28] MEDS: Aspirin 81 MG TAB.CHEW PO SCH (08:33)
[2021-08-28] MEDS: Spironolactone 25 MG TABLET PO SCH (08:33)
[2021-08-28] MEDS: carvediloL 6.25 MG TABLET PO SCH ×2 (08:33→17:21)
[2021-08-28] MEDS: Gabapentin 300 MG CAPSULE PO SCH ×3 (08:33→20:51)
[2021-08-28] MEDS: Isosorbide MONOnitrate (24 HR) 30 MG TAB.ER.24H PO SCH (08:34)
[2021-08-28] MEDS: amLODIPine 5 MG TABLET PO SCH (08:34)
[2021-08-28] MEDS: Thiamine (B-1) 100 MG in 0.9 % Sodium Chloride 50 ML IVPB SCH (08:38)
[2021-08-28 11:07] LABS: Cholesterol,Body Fluid 49 mg/dL
[2021-08-28] MEDS ORDERED: Heparin 1,000 UNITS/500 mL 500 ML ONE (11:44)
[2021-08-28] MEDS ORDERED: 0.9 % Sodium Chloride 1,000 ML ONE (11:44)
[2021-08-28] MEDS ORDERED: *HR* Heparin 10,000 UNIT/10 ML VIAL ONE ×2 (11:44→12:12)
[2021-08-28] MEDS ORDERED: Nitroglycerin 1,000 MCG/5 ML VIAL IV ONE (11:45)
[2021-08-28] MEDS ORDERED: ISOVUE-370 200 ML INFUS..BTL ONE (11:45)
[2021-08-28] MEDS: Ipratropium Neb 0.5 MG NEBULIZER IH PRN (11:50)
[2021-08-28] MEDS: *HR* LORazepam 2 MG/ML VIAL IVP PRN (12:04)
[2021-08-28] MEDS ORDERED: *HR* FentaNYL (PF) 100 MCG/2 ML VIAL ONE (12:11)
[2021-08-28] MEDS ORDERED: *HR* Midazolam HCl 2 MG/2 ML VIAL ONE (12:12)
[2021-08-28] MEDS: Melatonin 3 MG TABLET PO PRN (20:51)
[2021-08-29 02:06] LABS: Basophils # 0.1 K/mcL (0.0-0.2); Basophils % 0.9 %; Eosinophils # 0.2 K/mcL (0.0-0.6); Hematocrit 29.8 % (37.5-50.1); Hemoglobin 9.3 g/dL (12.9-16.9); Immature Granulocytes % 0.6 % (0-4); Lymphocytes # 1.8 K/mcL (0.6-4.6); Lymphocytes % 18.8 %; Mean Corpuscular HGB Conc 31.2 g/dL (31.6-35.5); Mean Corpuscular Hemoglobin 27.6 pg (28.0-33.3); Mean Corpuscular Volume 88.4 fL (83.0-100.0); Monocytes # 0.9 K/mcL (0.0-1.3); Monocytes % 9.6 %; Platelet Count 1003 K/mcL (140-400); Red Blood Count 3.37 M/mcL (4.19-5.50); Red Cell Distribution Width 18.1 % (11.5-14.5); Segmented Neutrophils % 68.1 %; White Blood Count 9.3 K/mcL (4.3-11.1)
[2021-08-29 02:15] LABS: Neutrophils # 6.3 K/mcL (1.6-8.9)
[2021-08-29 02:28] LABS: BUN/Creatinine Ratio 14 (6-26); Blood Urea Nitrogen 13 mg/dL (8-23); Calcium 9.1 mg/dL (8.6-10.3); Carbon Dioxide 33 mEq/L (23-29); Chloride 97 mEq/L (98-107); Glucose 111 mg/dL (70-105); Osmolality,Calculated 279 (280-300); Potassium 3.6 mEq/L (3.5-5.1); Sodium 134 mEq/L (136-145); eGFR For African Americans > 60 (> 60); eGFR For Non-African Americans > 60 (> 60)
[2021-08-29] MEDS: Levalbuterol Neb 1.25 MG/3 ML IH SCH ×4 (03:47→20:57)
[2021-08-29] MEDS: *HR* Heparin 5,000 UNIT/ML VIAL SQ SCH ×2 (04:59→16:38)
[2021-08-29] MEDS: carvediloL 6.25 MG TABLET PO SCH ×2 (09:01→16:37)
[2021-08-29] MEDS: Aspirin 81 MG TAB.CHEW PO SCH (09:01)
[2021-08-29] MEDS: amLODIPine 5 MG TABLET PO SCH (09:02)
[2021-08-29] MEDS: Furosemide 40 MG TABLET PO SCH (09:02)
[2021-08-29] MEDS: Baclofen 10 MG TABLET PO SCH ×3 (09:02→20:21)
[2021-08-29] MEDS: Spironolactone 25 MG TABLET PO SCH (09:02)
[2021-08-29] MEDS: Isosorbide MONOnitrate (24 HR) 30 MG TAB.ER.24H PO SCH (09:02)
[2021-08-29] MEDS: Gabapentin 300 MG CAPSULE PO SCH ×3 (09:02→20:20)
[2021-08-29] MEDS: Thiamine (B-1) 100 MG in 0.9 % Sodium Chloride 50 ML IVPB SCH (09:05)
[2021-08-29] MEDS: *HR* OxyCODONE/APAP 5/325 TABLET PO PRN ×2 (09:29→17:37)
[2021-08-30] MEDS: *HR* OxyCODONE/APAP 5/325 TABLET PO PRN ×3 (01:28→23:31)
[2021-08-30] MEDS: Levalbuterol Neb 1.25 MG/3 ML IH SCH ×4 (03:58→20:37)
[2021-08-30] MEDS: *HR* Heparin 5,000 UNIT/ML VIAL SQ SCH ×2 (05:14→16:33)
[2021-08-30] MEDS: Thiamine (B-1) 100 MG in 0.9 % Sodium Chloride 50 ML IVPB SCH (08:34)
[2021-08-30] MEDS: Baclofen 10 MG TABLET PO SCH ×3 (08:35→19:44)
[2021-08-30] MEDS: Gabapentin 300 MG CAPSULE PO SCH ×3 (08:35→19:43)
[2021-08-30] MEDS: carvediloL 6.25 MG TABLET PO SCH ×2 (08:35→16:33)
[2021-08-30] MEDS: Isosorbide MONOnitrate (24 HR) 30 MG TAB.ER.24H PO SCH (08:35)
[2021-08-30] MEDS: Aspirin 81 MG TAB.CHEW PO SCH (08:35)
[2021-08-30] MEDS: amLODIPine 5 MG TABLET PO SCH (08:35)
[2021-08-30] MEDS: Spironolactone 25 MG TABLET PO SCH (08:36)
[2021-08-30] MEDS: Furosemide 40 MG TABLET PO SCH (08:36)
[2021-08-31] MEDS: Levalbuterol Neb 1.25 MG/3 ML IH SCH ×4 (03:01→20:27)
[2021-08-31] MEDS: *HR* Metoprolol 5 MG/5 ML VIAL IVP PRN (03:32)
[2021-08-31] MEDS: *HR* Heparin 5,000 UNIT/ML VIAL SQ SCH ×2 (06:07→17:17)
[2021-08-31] MEDS: Furosemide 40 MG TABLET PO SCH (08:47)
[2021-08-31] MEDS: amLODIPine 5 MG TABLET PO SCH (08:47)
[2021-08-31] MEDS: Spironolactone 25 MG TABLET PO SCH (08:47)
[2021-08-31] MEDS: Isosorbide MONOnitrate (24 HR) 30 MG TAB.ER.24H PO SCH (08:47)
[2021-08-31] MEDS: Folic Acid 1 MG TABLET PO SCH (08:48)
[2021-08-31] MEDS: Aspirin 81 MG TAB.CHEW PO SCH (08:48)
[2021-08-31] MEDS: Baclofen 10 MG TABLET PO SCH ×3 (08:48→20:12)
[2021-08-31] MEDS: carvediloL 6.25 MG TABLET PO SCH ×2 (08:48→15:17)
[2021-08-31] MEDS: Gabapentin 300 MG CAPSULE PO SCH ×3 (08:48→20:12)
[2021-08-31] MEDS: Thiamine (B-1) 100 MG TABLET PO SCH (08:48)
[2021-08-31] MEDS: *HR* OxyCODONE/APAP 5/325 TABLET PO PRN ×2 (09:02→17:17)
[2021-08-31] MEDS: Pantoprazole 40 MG VIAL IVP SCH (17:17)
[2021-09-01] MEDS: Levalbuterol Neb 1.25 MG/3 ML IH SCH ×4 (03:52→20:00)
[2021-09-01] MEDS: *HR* Heparin 5,000 UNIT/ML VIAL SQ SCH ×2 (05:09→18:07)
[2021-09-01] MEDS: Pantoprazole 40 MG VIAL IVP SCH ×2 (05:10→18:07)
[2021-09-01] MEDS: *HR* OxyCODONE/APAP 5/325 TABLET PO PRN ×3 (05:23→22:08)
[2021-09-01] MEDS: Gabapentin 300 MG CAPSULE PO SCH ×3 (07:44→20:40)
[2021-09-01] MEDS: Thiamine (B-1) 100 MG TABLET PO SCH (07:44)
[2021-09-01] MEDS: Folic Acid 1 MG TABLET PO SCH (07:44)
[2021-09-01] MEDS: Aspirin 81 MG TAB.CHEW PO SCH (07:44)
[2021-09-01] MEDS: Baclofen 10 MG TABLET PO SCH ×3 (07:45→20:40)
[2021-09-01] MEDS: carvediloL 6.25 MG TABLET PO SCH ×2 (07:45→18:06)
[2021-09-01] MEDS: amLODIPine 5 MG TABLET PO SCH (07:45)
[2021-09-01] MEDS: Furosemide 40 MG TABLET PO SCH (07:46)
[2021-09-01] MEDS: Spironolactone 25 MG TABLET PO SCH (07:46)
[2021-09-01] MEDS: Isosorbide MONOnitrate (24 HR) 30 MG TAB.ER.24H PO SCH (07:47)
[2021-09-02] MEDS: Levalbuterol Neb 1.25 MG/3 ML IH SCH ×4 (03:57→21:23)
[2021-09-02] MEDS: *HR* Heparin 5,000 UNIT/ML VIAL SQ SCH ×2 (06:20→17:33)
[2021-09-02] MEDS: Pantoprazole 40 MG VIAL IVP SCH ×2 (06:20→17:03)
[2021-09-02] MEDS: Baclofen 10 MG TABLET PO SCH ×3 (08:53→20:27)
[2021-09-02] MEDS: Aspirin 81 MG TAB.CHEW PO SCH (08:53)
[2021-09-02] MEDS: Thiamine (B-1) 100 MG TABLET PO SCH (08:53)
[2021-09-02] MEDS: amLODIPine 5 MG TABLET PO SCH (08:53)
[2021-09-02] MEDS: carvediloL 6.25 MG TABLET PO SCH ×2 (08:53→17:01)
[2021-09-02] MEDS: Furosemide 40 MG TABLET PO SCH (08:53)
[2021-09-02] MEDS: Isosorbide MONOnitrate (24 HR) 30 MG TAB.ER.24H PO SCH (08:53)
[2021-09-02] MEDS: Spironolactone 25 MG TABLET PO SCH (08:53)
[2021-09-02] MEDS: Folic Acid 1 MG TABLET PO SCH (08:53)
[2021-09-02] MEDS: Gabapentin 300 MG CAPSULE PO SCH ×3 (08:53→20:27)
[2021-09-02] MEDS: *HR* OxyCODONE/APAP 5/325 TABLET PO PRN ×2 (08:53→17:01)
[2021-09-02] MEDS ORDERED: *HR* LORazepam 2 MG/ML VIAL IVP PRN (12:43)
[2021-09-02 15:01] LABS: BUN/Creatinine Ratio 9 (6-26); Blood Urea Nitrogen 10 mg/dL (8-23); Calcium 9.3 mg/dL (8.6-10.3); Carbon Dioxide 28 mEq/L (23-29); Chloride 100 mEq/L (98-107); Glucose 116 mg/dL (70-105); Osmolality,Calculated 280 (280-300); Potassium 3.8 mEq/L (3.5-5.1); Sodium 135 mEq/L (136-145); eGFR For African Americans > 60 (> 60); eGFR For Non-African Americans > 60 (> 60)
[2021-09-02] MEDS: Ipratropium Neb 0.5 MG NEBULIZER IH PRN (21:23)
[2021-09-03] MEDS: *HR* OxyCODONE/APAP 5/325 TABLET PO PRN ×3 (01:19→16:37)
[2021-09-03] MEDS: Melatonin 3 MG TABLET PO PRN ×2 (01:19→20:49)
[2021-09-03] MEDS: Levalbuterol Neb 1.25 MG/3 ML IH SCH ×4 (03:28→20:36)
[2021-09-03] MEDS: Pantoprazole 40 MG VIAL IVP SCH ×2 (05:54→16:36)
[2021-09-03] MEDS: *HR* Heparin 5,000 UNIT/ML VIAL SQ SCH ×2 (05:54→16:36)
[2021-09-03] MEDS: Aspirin 81 MG TAB.CHEW PO SCH (08:44)
[2021-09-03] MEDS: Furosemide 40 MG TABLET PO SCH (08:44)
[2021-09-03] MEDS: Folic Acid 1 MG TABLET PO SCH (08:44)
[2021-09-03] MEDS: Spironolactone 25 MG TABLET PO SCH (08:44)
[2021-09-03] MEDS: amLODIPine 5 MG TABLET PO SCH (08:44)
[2021-09-03] MEDS: carvediloL 6.25 MG TABLET PO SCH ×2 (08:44→16:36)
[2021-09-03] MEDS: Isosorbide MONOnitrate (24 HR) 30 MG TAB.ER.24H PO SCH (08:44)
[2021-09-03] MEDS: Thiamine (B-1) 100 MG TABLET PO SCH (08:44)
[2021-09-03] MEDS: Baclofen 10 MG TABLET PO SCH ×3 (08:45→20:49)
[2021-09-03] MEDS: Gabapentin 300 MG CAPSULE PO SCH ×3 (08:45→20:49)
[2021-09-04] MEDS: Levalbuterol Neb 1.25 MG/3 ML IH SCH ×2 (03:30→07:25)
[2021-09-04] MEDS: *HR* Heparin 5,000 UNIT/ML VIAL SQ SCH ×2 (06:04→16:36)
[2021-09-04] MEDS: Pantoprazole 40 MG VIAL IVP SCH (06:05)
[2021-09-04] MEDS: Aspirin 81 MG TAB.CHEW PO SCH (08:12)
[2021-09-04] MEDS: Gabapentin 300 MG CAPSULE PO SCH ×3 (08:13→21:01)
[2021-09-04] MEDS: Isosorbide MONOnitrate (24 HR) 30 MG TAB.ER.24H PO SCH (08:13)
[2021-09-04] MEDS: Thiamine (B-1) 100 MG TABLET PO SCH (08:13)
[2021-09-04] MEDS: carvediloL 6.25 MG TABLET PO SCH ×2 (08:13→16:37)
[2021-09-04] MEDS: *HR* OxyCODONE/APAP 5/325 TABLET PO PRN ×2 (08:13→16:37)
[2021-09-04] MEDS: Baclofen 10 MG TABLET PO SCH ×3 (08:13→21:02)
[2021-09-04] MEDS: Folic Acid 1 MG TABLET PO SCH (08:13)
[2021-09-04] MEDS: amLODIPine 5 MG TABLET PO SCH (08:13)
[2021-09-04] MEDS: Furosemide 40 MG TABLET PO SCH (08:13)
[2021-09-04] MEDS: Spironolactone 25 MG TABLET PO SCH (08:13)
[2021-09-04] MEDS ORDERED: Levalbuterol Neb 1.25 MG/3 ML IH PRN (14:03)
[2021-09-04] MEDS: Melatonin 3 MG TABLET PO PRN (21:01)
[2021-09-05] MEDS: *HR* OxyCODONE/APAP 5/325 TABLET PO PRN ×2 (01:18→10:37)
[2021-09-05] MEDS: *HR* Heparin 5,000 UNIT/ML VIAL SQ SCH (05:54)
[2021-09-05] MEDS: Folic Acid 1 MG TABLET PO SCH (07:57)
[2021-09-05] MEDS: Aspirin 81 MG TAB.CHEW PO SCH (07:57)
[2021-09-05] MEDS: amLODIPine 5 MG TABLET PO SCH (07:57)
[2021-09-05] MEDS: Thiamine (B-1) 100 MG TABLET PO SCH (07:57)
[2021-09-05] MEDS: Furosemide 40 MG TABLET PO SCH (07:57)
[2021-09-05] MEDS: Gabapentin 300 MG CAPSULE PO SCH (07:57)
[2021-09-05] MEDS: Isosorbide MONOnitrate (24 HR) 30 MG TAB.ER.24H PO SCH (07:57)
[2021-09-05] MEDS: Spironolactone 25 MG TABLET PO SCH (07:57)
[2021-09-05] MEDS: carvediloL 6.25 MG TABLET PO SCH (07:57)
[2021-09-05] MEDS: Baclofen 10 MG TABLET PO SCH (07:57)
[2021-09-05 11:00] VITALS: BP 118/61; PULSE 72; TEMP 98.2; O2SAT 95
== END 2021-09-05 14:44 | disposition home or self-care (01) | DRG 896 ==
LOC: 3ANU → SUATTDRO 08-16 03:58 → 3NENU 08-16 14:54 → ICNU 08-16 21:56 → SUATTDRO 08-16 22:45 → 3BNU 08-20 14:08 → 2NNU 08-24 14:17 → 2ANU 08-29 11:15
PROVIDERS: ADMIT Internal Medicine; ATTEND Internal Medicine